=== PATIENT | male | born 1980 | race Caucasian/White ===

== ENCOUNTER 2019-02-09 01:36 | Emergency (ER) | payer BC, SELFPAY ==
[2019-02-09] VITALS (36 sets, daily range): BP systolic 123–196; BP diastolic 57–102; PULSE 69–101; RESP 12–25; TEMP 36.5–36.7; O2SAT 93–100
--- NOTE | 2019-02-09 01:57 | W.ED.GENAD ---
Discharge Plan Disposition Patient Disposition: HOME Condition: Improving Discharge Details Chief Complaint: Chest Pain Clinical Impression: Acute hypokalemia ED Provider: Hi Sanchez Home Meds and New Rx's Prescriptions: No Action No Known Home Meds RF: 0 Discharge Instructions Instructions: Hypokalemia (ED) Additional Instructions: As we discussed, I recommend you use a fitness mohamud or tracker to begin a program of improved diet and daily exercise. We will arrange for you to establish outpatient primary care. May liberalize potassium containing foods such as bananas, strawberries, tree nuts like cashews or almonds in the diet over the next 2 to 3 days. Return for any acute concern. Medical Decision Making 38-year-old male presents from home stating that on this past Friday he had numerous episodes of loose and watery stool, during 1 episode he was diaphoretic and lightheaded. Did not of syncope. He states he had brief tightness in his chest during that time that abated on its own. Tonight he again had recurrent epigastric tightness that lasted seconds and began after eating a hamburger. It was associated with tingling of the hands and he admits some anxiety. It improved by the time of arrival. Patient admits to some worries regarding his weight of 230 kg and wanted to make sure he did not have a heart attack after reviewing symptoms online. He arrives slightly anxious with a pulse 90-100, blood pressure 190/96. Differential diagnosis includes dehydration, electrolyte abnormality, acute coronary syndrome, esophagitis, anxiety. IV access established, patient placed on a cardiac nurse specialist, given a fluid bolus. Referred for laboratory testing and chest x-ray. Diagnostics: Blood cell count 7, hematocrit 41, platelets 187. Chemistries notable for potassium of 2.8. Troponin negative. chest x-ray unremarkable. Patient improved with fluids, potassium supplementation. We will arrange for him to establish outpatient primary care. Discussed with him utilizing a fitness mohamud and to begin a program of improved diet and exercise. Lab Data Lab results reviewed: Yes I reviewed the patient's lab results. Laboratory Results - last 24 hr 02/09/19 02/09/19 02:05 02:05 WBC 7.71 RBC 5.06 Hgb 13.7 Hct 41.6 MCV 82.2 MCH 27.1 MCHC 32.9 RDW 13.6 Plt Count 187 MPV 11.3 H Immature Gran % 0.3 Neutrophils % 64.4 Lymphocytes % 25.7 Monocytes % 7.9 Eosinophils % 1.4 Basophils % 0.3 Absolute Neutrophils 4.97 Absolute Lymphocytes 1.98 Absolute Monocytes 0.61 Absolute Eosinophils 0.11 Absolute Basophils 0.02 Sodium 143 Potassium 2.8 L* Chloride 104 Carbon Dioxide 30.6 Anion Gap 8.4 BUN 14 Creatinine 1.04 Estimated GFR/1.73 m2 >= 60.00 Glucose 96 Calcium 8.8 Magnesium 2.0 Total Bilirubin 0.4 AST 21 ALT 33 Alkaline Phosphatase 90 Troponin I < 0.02 Total Protein 7.4 Albumin 3.7 ECG Data Attestation: I personally reviewed and interpreted this ECG (s) as follows: Interpretation: Normal sinus rhythm with a rate of 98, the QRS is narrow, there is no ST segment elevation HPI General Mode of arrival: ambulatory. Date/Time Provider Initiated Documentation: 02/09/19 01:41. Limitations to Documentation: no limitations. Information obtained by: patient. History of Present Illness 38 year old M presents to the emergency department with the chief complaint of Brief chest pressure, improved, described as moderate, Quality is described as dull and constant, and is localized to the chest. Patient reports no radiation. Patient started experiencing this minute(s) and it has been now resolved. No relieving factors improve symptom(s), No exacerbating factors reported . Patient notes other (Nauseated and diaphoresis. Recent watery stool). Patient did receive the following treatments prior to arrival, none Related Data Home Medications Medication Instructions Recorded Confirmed Unknown [No Known Home Meds] 02/09/19 02/09/19 Allergies Allergy/AdvReac Type Severity Reaction Status Date / Time No Known Allergies Allergy Unverified 02/09/19 01:45 General Stated Complaint: Chest Pain SHAI: 2 Review of Systems Review of Systems 6 systems reviewed and otherwise negative [facility] Medical History Obesity (Chronic) Psoriasis (Chronic) Surgical History H/O oral surgery (Acute) Social History Smoking/Tobacco Use Status: Never Alcohol Intake: current Alcohol Intake frequency: holidays/special occasions only Drug use: Socially Substance use type: marijuana Do you feel safe at home: Yes Do you feel safe in your relationship?: Yes Exam Narrative Exam Narrative: GEN: awake, alert, oriented 3. Pleasant, well groomed, interactive. Obese HEAD: Normocephalic, atraumatic ENT: Mucous membranes moist, oropharynx unremarkable, External ear exam unremarkable EYES: PERRL, EOMI NECK: Full ROM, no CIRO, no menigismus CHEST/RESP: Nontender, clear to auscultation bilateral, no wheeze/rhonchi/rales CARDIOVASCULAR: RRR, no murmur, rub mitchel. 2+ Rad pulse bilateral ABDOMEN: Soft, nontender, no mass. +Bowel sounds. Small reducible umbilical hernia EXT: Full ROM, no edema, no rash Neuro: Grossly normal neurologic exam, conversant, interactive. Psych: Speech fluent, thoughts congruent, affect anxious Course Vital Signs Respiratory Rate 25 H 02/09/19 01:37 Pulse Oximetry 100 02/09/19 01:37 Temperature 36.7 C 02/09/19 01:42 Temperature Source Skin 02/09/19 01:42 Pulse 101 H 02/09/19 01:42 Pulse 96 H 02/09/19 01:40 Respiratory Rate 18 02/09/19 01:42 Respiratory Effort 02/09/19 01:47 Respiratory Depth Normal 02/09/19 01:47 Respiratory Pattern Normal 02/09/19 01:47 Blood Pressure 196/101 H 02/09/19 01:42 Blood Pressure Mean 123 02/09/19 01:38 Blood Pressure Position Sitting 02/09/19 01:42 Pulse Oximetry 99 02/09/19 01:42 Oxygen Delivery Method Room Air 02/09/19 01:42 Oxygen Flow Rate 0 02/09/19 01:42 Pain Level 3 02/09/19 01:42
--- NOTE | 2019-02-09 02:00 | ED.GENADUL_ITS ---
Discharge Plan Disposition Patient Disposition: HOME Condition: Improving Discharge Details Chief Complaint: Chest Pain Clinical Impression: Acute hypokalemia ED Provider: Hi Sanchez Home Meds and New Rx's Prescriptions: No Action No Known Home Meds RF: 0 Discharge Instructions Instructions: Hypokalemia (ED) Additional Instructions: As we discussed, I recommend you use a fitness mohamud or tracker to begin a program of improved diet and daily exercise. We will arrange for you to establish outpatient primary care. May liberalize potassium containing foods such as bananas, strawberries, tree nuts like cashews or almonds in the diet over the next 2 to 3 days. Return for any acute concern. Medical Decision Making 38-year-old male presents from home stating that on this past Friday he had numerous episodes of loose and watery stool, during 1 episode he was diaphoretic and lightheaded. Did not of syncope. He states he had brief tightness in his chest during that time that abated on its own. Tonight he again had recurrent epigastric tightness that lasted seconds and began after eating a hamburger. It was associated with tingling of the hands and he admits some anxiety. It improved by the time of arrival. Patient admits to some worries regarding his weight of 230 kg and wanted to make sure he did not have a heart attack after reviewing symptoms online. He arrives slightly anxious with a pulse 90-100, blood pressure 190/96. Differential diagnosis includes dehydration, electrolyte abnormality, acute coronary syndrome, esophagitis, anxiety. IV access established, patient placed on a security monitor, given a fluid bolus. Referred for laboratory testing and chest x-ray. Diagnostics: Blood cell count 7, hematocrit 41, platelets 187. Chemistries notable for potassium of 2.8. Troponin negative. chest x-ray unremarkable. Patient improved with fluids, potassium supplementation. We will arrange for him to establish outpatient primary care. Discussed with him utilizing a fitness mohamud and to begin a program of improved diet and exercise. Lab Data Lab results reviewed: Yes I reviewed the patient's lab results. Laboratory Results - last 24 hr 02/09/19 02/09/19 02:05 02:05 WBC 7.71 RBC 5.06 Hgb 13.7 Hct 41.6 MCV 82.2 MCH 27.1 MCHC 32.9 RDW 13.6 Plt Count 187 MPV 11.3 H Immature Gran % 0.3 Neutrophils % 64.4 Lymphocytes % 25.7 Monocytes % 7.9 Eosinophils % 1.4 Basophils % 0.3 Absolute Neutrophils 4.97 Absolute Lymphocytes 1.98 Absolute Monocytes 0.61 Absolute Eosinophils 0.11 Absolute Basophils 0.02 Sodium 143 Potassium 2.8 L* Chloride 104 Carbon Dioxide 30.6 Anion Gap 8.4 BUN 14 Creatinine 1.04 Estimated GFR/1.73 m2 >= 60.00 Glucose 96 Calcium 8.8 Magnesium 2.0 Total Bilirubin 0.4 AST 21 ALT 33 Alkaline Phosphatase 90 Troponin I < 0.02 Total Protein 7.4 Albumin 3.7 ECG Data Attestation: I personally reviewed and interpreted this ECG (s) as follows: Interpretation: Normal sinus rhythm with a rate of 98, the QRS is narrow, there is no ST segment elevation HPI General Mode of arrival: ambulatory . Date/Time Provider Initiated Documentation: 02/09/19 01:41 . Limitations to Documentation: no limitations . Information obtained by: patient . History of Present Illness 38 year old M presents to the emergency department with the chief complaint of Brief chest pressure, improved, described as moderate, Quality is described as dull and constant, and is localized to the chest. Patient reports no radiation. Patient started experiencing this minute(s) and it has been now resolved. No relieving factors improve symptom(s), No exacerbating factors reported . Patient notes other (Nauseated and diaphoresis. Recent watery stool). Patient did receive the following treatments prior to arrival, none Related Data Home Medications Medication Instructions Recorded Confirmed Unknown [No Known Home Meds] 02/09/19 02/09/19 Allergies Allergy/AdvReac Type Severity Reaction Status Date / Time No Known Allergies Allergy Unverified 02/09/19 01:45 General Stated Complaint: Chest Pain SHAI: 2 Review of Systems Review of Systems 6 systems reviewed and otherwise negative [facility] Medical History Obesity (Chronic) Psoriasis (Chronic) Surgical History H/O oral surgery (Acute) Social History Smoking/Tobacco Use Status: Never Alcohol Intake: current Alcohol Intake frequency: holidays/special occasions only Drug use: Socially Substance use type: marijuana Do you feel safe at home: Yes Do you feel safe in your relationship?: Yes Exam Narrative Exam Narrative: GEN: awake, alert, oriented 3. Pleasant, well groomed, interactive. Obese HEAD: Normocephalic, atraumatic ENT: Mucous membranes moist, oropharynx unremarkable, External ear exam unremarkable EYES: PERRL, EOMI NECK: Full ROM, no CIRO, no menigismus CHEST/RESP: Nontender, clear to auscultation bilateral, no wheeze/rhonchi/rales CARDIOVASCULAR: RRR, no murmur, rub mitchel. 2+ Rad pulse bilateral ABDOMEN: Soft, nontender, no mass. +Bowel sounds. Small reducible umbilical hernia EXT: Full ROM, no edema, no rash Neuro: Grossly normal neurologic exam, conversant, interactive. Psych: Speech fluent, thoughts congruent, affect anxious Course Vital Signs Respiratory Rate 25 H 02/09/19 01:37 Pulse Oximetry 100 02/09/19 01:37 Temperature 36.7 C 02/09/19 01:42 Temperature Source Skin 02/09/19 01:42 Pulse 101 H 02/09/19 01:42 Pulse 96 H 02/09/19 01:40 Respiratory Rate 18 02/09/19 01:42 Respiratory Effort 02/09/19 01:47 Respiratory Depth Normal 02/09/19 01:47 Respiratory Pattern Normal 02/09/19 01:47 Blood Pressure 196/101 H 02/09/19 01:42 Blood Pressure Mean 123 02/09/19 01:38 Blood Pressure Position Sitting 02/09/19 01:42 Pulse Oximetry 99 02/09/19 01:42 Oxygen Delivery Method Room Air 02/09/19 01:42 Oxygen Flow Rate 0 02/09/19 01:42 Pain Level 3 02/09/19 01:42
[2019-02-09] MEDS: Normal Saline 1,000 ML 1000 ML IV (02:15)
[2019-02-09] MEDS: Normal Saline Flush 10 ML SYR IVP (02:15)
[2019-02-09 02:16] LABS: Abs Immature Grans 0.02 k/cumm (0.0-0.09); Absolute Basophil Count 0.02 k/cumm (0.0-0.2); Absolute Eosinophil Count 0.11 k/cumm (0.0-0.7); Absolute Lymphocyte Count 1.98 k/cumm (1.2-3.4); Absolute Monocyte Count 0.61 k/cumm (0.11-0.7); Absolute Neutrophil Count 4.97 k/cumm (1.2-6.7); Basophils % 0.3; Eosinophils % 1.4; HCT 41.6 % (40.0-50.0); HGB 13.7 g/dL (13.5-17.5); Immature Grans % 0.3; Lymphocytes % 25.7; Mean Corp. HGB Concentration 32.9 g/dL (32.0-36.0); Mean Corpuscular Hemoglobin 27.1 pg (27.0-33.0); Mean Corpuscular Volume 82.2 fL (80-95); Mean Platelet Volume 11.3 fL (8.0-11.0); Monocytes % 7.9; Neutrophils % 64.4; Platelet Count 187 x1000/uL (130-400); RBC 5.06 m/cumm (4.50-6.00); RBC Distribution Width 13.6 % (11.8-14.1); White Blood Cell Count 7.71 k/cumm (4.4-10.8)
--- NOTE | 2019-02-09 02:30 | DI.RAD_ITS ---
SYMPTOM/DIAGNOSIS: CHEST PAIN PA AND LATERAL CHEST: There are no prior comparison exams. Again exam is limited by patient's body habitus. The cardiac and mediastinal contours have a normal appearance. The lungs appear clear. No infiltrate or effusion is seen. There is some respiratory motion on the lateral view. IMPRESSION: Somewhat limited exam. No acute abnormality.
[2019-02-09 02:31] LABS: ALT 33 U/L (12-78); AST 21 U/L (15-37); Albumin 3.7 g/dL (3.4-5.0); Alkaline Phosphatase 90 U/L (46-116); Anion Gap 8.4 mmol/L (3-11); BUN 14 mg/dL (7-18); Bilirubin, Total 0.4 mg/dL (0.2-1.0); CO2 30.6 mmol/L (21.0-32.0); CREATININE 1.04 mg/dL (0.70-1.30); Calcium 8.8 mg/dL (8.5-10.1); Chloride 104 mmol/L (98-107); Glucose 96 mg/dL (70-100); Sodium 143 mmol/L (136-145); Total Protein 7.4 g/dL (6.4-8.2)
[2019-02-09 02:39] LABS: Potassium 2.8 mmol/L (3.5-5.1); Troponin I < 0.02 ng/mL (0.00-0.06)
[2019-02-09] MEDS: Potassium Chloride Liquid 20 MEQ PKT PO (02:56)
[2019-02-09] MEDS: POTASSIUM CHLORIDE 20 MEQ/100 ML BAG 50 MEQ IVPB (02:56)
--- NOTE | 2019-02-09 03:21 | DI.VRAD_ITS ---
EXAM: XR Chest, 2 Views EXAM DATE/TIME: 02/09/2019 1:57 AM CLINICAL HISTORY: 38 years old, male; Chest pain; Type not specified TECHNIQUE: Imaging protocol: XR of the chest, 2 views. COMPARISON: No relevant prior studies available. FINDINGS: Lungs: Unremarkable. No consolidation. Pleural space: Unremarkable. No pleural effusion. No pneumothorax. Heart/Mediastinum: Unremarkable. No cardiomegaly. Bones/joints: Unremarkable. IMPRESSION: No acute findings. Dictated and Authenticated by: Shaka Cuba MD. Ordering:MARISSA Do MD
== END 2019-02-09 05:38 | disposition home or self-care (01) ==
PROVIDERS: Emergency Provider Emergency Medicine
DX: E87.6 Hypokalemia (principal); R20.2 Paresthesia of skin; F41.9 Anxiety disorder, unspecified
CPT/HCPCS: 36415; 80053; 96361; 96365; 96366; 99284; 71046; 83735; 84484; 85025; J3480

== ENCOUNTER 2020-10-26 16:47 | Outpatient (REF) | payer BC, SELFPAY ==
[2020-10-26 21:10] LABS: HCT 48.6 % (40.0-50.0); MCH 27.1 pg (27.0-33.0); MCHC 32.9 % (32.0-36.0); MCV 82.4 fL (80-95); MPV 12.8 fL (8.0-11.0); Platelet Count 183 10^3/uL (130-400); RDW 12.7 % (11.8-14.1); RDW-SD 38.1 fL; WBC 6.44 10^3/uL (4.4-10.8)
[2020-10-26 21:37] LABS: ALT 31 U/L (16-63); AST 18 U/L (15-37); Albumin 3.8 g/dL (3.4-5.0); Alkaline Phosphatase 89 U/L (46-116); BUN 12 mg/dL (7-18); Bilirubin, Total 0.6 mg/dL (0.2-1.0); CREATININE 0.9 mg/dL (0.70-1.30); Calculated LDL 115 mg/dL (<100); Chloride 107 mmol/L (98-107); Cholesterol 168 mg/dL (<200); Glucose 98 mg/dL (74-106); HDL Cholesterol 34 mg/dL (40-60); Potassium 3.8 mmol/L (3.5-5.1); Sodium 144 mmol/L (136-145); Total Protein 7.5 g/dL (6.4-8.2); Triglyceride 96 mg/dL (<150)
[2020-10-30 10:21] LABS: Hepatitis C Ab w Rflx HCV PCR Negative (Negative)
[2020-10-30 10:29] LABS: HIV-1/2 Ag & Ab Screen Negative (Negative)
== END 2020-10-26 16:48 | disposition home or self-care (01) ==
LOC: NCHCN 16:47
PROVIDERS: Visit Provider Nurse Practitioner Family
DX: I10 Essential (primary) hypertension (principal); E87.6 Hypokalemia; Z11.59 Encounter for screening for other viral diseases; Z11.4 Encounter for screening for human immunodeficiency virus [HIV]
CPT/HCPCS: 80053; 80061; 85027; 86803; 87389

== ENCOUNTER 2021-05-26 11:37 | Emergency (ER) | payer BC, SELFPAY ==
[2021-05-26 11:42] VITALS: BP 160/105; PULSE 92; RESP 16; TEMP 36
--- NOTE | 2021-05-26 11:45 | DI.CT_ITS ---
Exam(s) CT ABDOMEN PELVIS W EXAM: CT ABDOMEN PELVIS W CLINICAL HISTORY: lower abdominal pain TECHNIQUE: Imaging Protocol: Axial computed tomography images with coronal and sagittal reformatted images were created and reviewed CONTRAST MATERIAL: Intravenous: Omnipaque 350 Contrast volume:100 mL Oral: No COMPARISON: No exams were available for comparison FINDINGS: The examination is limited due to patient motion artifact. ABDOMEN: Lung Bases: Normal where visualized. Small hiatal hernia. Liver: Fatty infiltration. No measurable mass. The liver is 22 cm long. Portal, Superior Mesenteric, and Splenic Veins: Unremarkable. Gallbladder and Biliary Tract: Cholelithiasis. No biliary ductal dilatation. Pancreas: Normal density, no abnormal calcifications or inflammatory process. Spleen: The spleen measures 15 cm long. Adrenals: No masses seen. Kidneys: Normal size, contour and axis. There is a 1-2 mm stone at the right UVJ. (Series 7, image 8 05). There is mild hydronephrosis. No masses seen. Abdominal Aorta: Abdominal portion non-dilated. Bowel: No obstruction or bowel wall thickening. No evidence of appendicitis. Peritoneal Cavity: No ascites, collection or mesenteric inflammatory response. No free air. Lymph Nodes: Within normal limits. Bones: Within normal limits for the patient's age. Soft Tissues: There is a large fat containing umbilical hernia. PELVIS: Bladder: The urinary bladder is incompletely distended. No gross abnormality is identified. Reproductive Organs: Unremarkable as visualized. Lymph Nodes: Within normal limits. Bones: Within normal limits for the patient's age. IMPRESSION: 1. 1-2 mm right UVJ calculus with mild hydronephrosis. 2. Large fat containing umbilical hernia. RADIATION DOSE DELIVERED: 1,816.86mGy.cm Total DLP DATA REPOSITORY: All CT scans at this facility are submitted to the National Radiology Data Registry (NRDR) Dose Index Registry (DIR) with the [employer] ([employer]). RADIATION OPTIMIZATION: All CT scans at this facility use at least one of these dose optimization te chniques: automated exposure control; mA and/or kV adjustment per patient size (includes targeted exa ms where dose is matched to clinical indication); or iterative reconstruction.
--- NOTE | 2021-05-26 11:59 | W.ED.GENAD ---
Discharge Plan Disposition Patient Disposition: HOME Condition: Stable Discharge Details Clinical Impression: Pain in testicle, Abdominal pain, Kidney stone, Hypokalemia Primary Care Provider: Ben Mathias ED Provider: Shaka Villalobos Home Meds and New Rx's Prescriptions: New ondansetron 4 mg tablet,disintegrating 4 mg PO Q8H PRN (Reason: nausea and vomiting) Qty: 30 RF: 0 tamsulosin [Flomax] 0.4 mg capsule 0.4 mg PO DAILY Qty: 13 RF: 0 oxycodone 5 mg tablet 5 mg PO Q6H PRN (Reason: pain) Qty: 12 RF: 0 Continued losartan-hydrochlorothiazide 100-12.5 mg tablet 1 tab PO DAILY RF: 0 Discharge Instructions Instructions: Kidney Stones (ED), Hypokalemia (ED) Additional Instructions: you were found to have a kidney stone on the right and you have a abdominal wall hernia that has no bowels in it I placed you on our follow up list to see a urologist and for your hernia referred you to general surgery, you should receive a call for both of these appointments if you feel more ill, have fevers or persistent vomit return to the emergency department you can take 1000mg tylenol and 600mg ibuprofen every 6 hours for pain as needed do not drink alcohol or drive if you take the oxycodone Medical Decision Making 41 yo male with hx of htn comes in with lower abdominal cramping and pain since this morning. He has been having chronic issues with bowel movements and constipation and intermittent pain with having bowel movements. He is due to see a surgeon for colonoscopy. He denies any vomit recently or fevers. He is in no distress and appears well. He has tenderness in the llq, and a tender mid abdomen and what feels like a hernia, no testicle swelling or pain. His rectal exam is benign, no blood, hemorrhoids, fissures or other abnormalities on exam. I suspect his symptoms are due to functional constipation but given the llq tenderness and hernia on exam will obtain labs and ct to evaluate for possible diverticulitis shortly after initial assessment patient started to become tremulous, have nausea and diaphoretic and appeared to be having a panic attack, zofran ordered and also ativan to help with the anxiety and help to get adequate ct imaging. pt now complaining of right testicle pain, no swelling on exam but is tender to posterior testicle, intact cremasteric reflex so unlikely torsion but will obtain u/s to further evaluate. labs remarkable for K of 2.6, repletion ordered. U/s unremarkable, CT by vrad showed fat containing hernia which I discussed with Dr. Alonso who advised no acute intervention if no bowel present in the hernia. Vrad did not comment on his right kidney stone but Dr. Vale called and advised he does have one. Patient informed of this and is feeling better, will recheck metabolic panel after potassium finishes pt's K increased to 3.0 and he is tolerating PO and feels significantly better to the point he feels he can go home. He is stable for outpatient management and will place on f/u list to see urology, return precautions given Differential Diagnosis Differential Diagnosis: constipation, diverticulitis, functional constipation Imaging Data Radiologic Study: Attestation: I personally reviewed and interpreted this imaging study as follows: Imaging: CT Scan Radiologist's impression: MPRESSION: 1. 1-2 mm right UVJ calculus with mild hydronephrosis. 2. Large fat containing umbilical hernia. Radiologic Study #2: Attestation: I personally reviewed and interpreted this imaging study as follows: Imaging: Ultrasound Radiologist's impression: IMPRESSION: Testes appear normal with normal flow. Trace right-sided fluid is noted. Lab Data Lab results reviewed: Yes I reviewed the patient's lab results. HPI General Mode of arrival: ambulatory. Date/Time Provider Initiated Documentation: 05/26/21 11:40. Limitations to Documentation: no limitations. Information obtained by: patient. History of Present Illness 41 year old M presents to the emergency department with the chief complaint of abdominal pain, with intensity rated at 4. Quality is described as aching, and is localized to the abdomen. Patient reports no radiation. Patient started experiencing this day(s) (1) and it has been constant. No relieving factors improve symptom(s), No exacerbating factors reported . Patient did receive the following treatments prior to arrival, none Related Data Home Medications Medication Instructions Recorded Confirmed losartan 100 1 tab PO DAILY 05/25/21 05/26/21 mg-hydrochlorothiazide 12.5 mg tablet ondansetron 4 mg PO Q8H PRN #30 tab 05/26/21 oxycodone 5 mg PO Q6H PRN #12 tab 05/26/21 tamsulosin [Flomax] 0.4 mg PO DAILY #13 cap 05/26/21 Previous Rx's Medication Instructions Recorded ondansetron 4 mg PO Q8H PRN #30 tab 05/26/21 oxycodone 5 mg PO Q6H PRN #12 tab 05/26/21 tamsulosin [Flomax] 0.4 mg PO DAILY #13 cap 05/26/21 Allergies Allergy/AdvReac Type Severity Reaction Status Date / Time No Known Allergies Allergy Unverified 05/26/21 11:47 General Stated Complaint: Abd Prob SHAI: 3 Review of Systems All systems reviewed & are unremarkable except as noted in HPI and below Constitutional Constitutional: Denies chills, Denies fever(s) and Denies weakness Cardiovascular Cardiovascular: Denies chest pain and Denies dyspnea Respiratory Respiratory: Denies cough and Denies dyspnea Gastrointestinal Gastrointestinal: Denies nausea and Denies vomiting Neurologic Neurologic: Denies weakness [facility] Medical History (Updated 05/26/21 @ 14:47 by Shaka Villalobos MD) Hypertension Obesity Psoriasis Skin tag Tenesmus Umbilical hernia Surgical History H/O oral surgery Social History Smoking/Tobacco Use Status: Never Smoking risk assessment performed?: Yes Alcohol Intake: current Alcohol Intake frequency: holidays/special occasions only Drug use: Socially Substance use type: marijuana Do you feel safe at home: Yes Do you feel safe in your relationship?: Yes Exam Const General: no acute distress Orientation: alert HENAK Head: normal to inspection Ears: external ears normal General nose exam: external nose normal Mouth: moist mucous membranes Eyes General: appearance normal, both eyes and all related structures Neck Neck: normal visual inspection Resp Effort & Inspection: normal respiratory effort and able to speak in complete sentences Cardio Rate: regular rate GI Palpation: soft and tender Skin General skin exam: no rashes or lesions noted Neuro General: patient alert and patient oriented x3 Extrem General: normal to inspection Psych Mental Status: mental status grossly normal Course Vital Signs Vital signs: Vital Signs Temperature 36 C L 05/26/21 11:42 Pulse 92 H 05/26/21 11:42 Respiratory Rate 16 05/26/21 11:42 Blood Pressure 160/105 H 05/26/21 11:42 Temperature 36 C L 05/26/21 11:42 Temperature Source Skin 05/26/21 11:42 Pulse 92 H 05/26/21 11:42 Respiratory Rate 16 05/26/21 11:42 Respiratory Effort Non-Labored 05/26/21 11:42 Blood Pressure 160/105 H 05/26/21 11:42 Blood Pressure Position Sitting 05/26/21 11:42 Oxygen Delivery Method Room Air 05/26/21 11:42 Oxygen Flow Rate 0 05/26/21 11:42 Pain Level 4 05/26/21 11:42
[2021-05-26] MEDS: Normal Saline 1,000 ML 1000 ML IV (12:35)
[2021-05-26] MEDS: Normal Saline Flush 10 ML SYR IVP ×4 (12:35→16:02)
[2021-05-26] MEDS: Ketorolac 15 MG/ML VIAL IVP ×2 (12:35→13:35)
[2021-05-26] MEDS: Ondansetron 4 MG/2 ML VIAL IVP ×2 (12:45→13:48)
[2021-05-26] MEDS: LORazepam 2 MG/ML VIAL 1 MG IVP (12:50)
[2021-05-26 12:58] LABS: Abs Immature Grans 0.01 10^3/uL (0.0-0.06); Absolute Basophil Count 0.04 10^3/uL (0.0-0.2); Absolute Eosinophil Count 0.04 10^3/uL (0.0-0.7); Absolute Lymphocyte Count 1.52 10^3/uL (1.2-3.4); Absolute Monocyte Count 0.65 10^3/uL (0.1-0.8); Absolute Neutrophil Count 3.75 10^3/uL (1.2-6.7); Basophils % 0.7; Eosinophils % 0.7; HCT 46.1 % (40.0-50.0); HGB 15.3 g/dL (13.5-17.5); Immature Grans % 0.2; Lymphocytes % 25.3; MCH 26.9 pg (27.0-33.0); MCHC 33.2 % (32.0-36.0); MCV 81.2 fL (80-95); MPV 12.7 fL (8.0-11.0); Monocytes % 10.8; Neutrophils % 62.3; Nucleated RBC 0 %; Platelet Count 198 10^3/uL (130-400); RBC 5.68 10^6/uL (4.36-5.78); RDW 12.3 % (11.8-14.1); RDW-SD 36.2 fL; WBC 6.01 10^3/uL (4.4-10.8)
--- NOTE | 2021-05-26 13:00 | DI.US_ITS ---
Exam(s) US SCROTUM EXAM: US SCROTUM CLINICAL HISTORY: right testicle pain. TECHNIQUE: Scrotal ultrasound performed using grayscale, color-flow and spectral Doppler analysis. COMPARISON: No exams were available for comparison FINDINGS: Right testicle: 5.2 x 2.7 x 3.1 cm Echogenicity: Normal. Contour: Smooth. Mass: None seen. Microlithiasis: None. Hydrocele: None. Variocele: None. Hernia: No peristalsing bowel loop identified. Epididymis: Normal. The epididymal appendix is visualized. Left testicle: 4.5 x 2.7 x 3.7 cm Echogenicity: Normal. Contour: Smooth. Mass: None seen. Microlithiasis: None. Hydrocele: None. Variocele: None. Hernia: No peristalsing bowel loop identified. Epididymis: There is a 2 mm epididymal head cyst. DOPPLER: Color: Symmetric and uniform, no hyperemia. Duplex: Bilateral testicular arterial waveforms visualized. IMPRESSION: No evidence of testicular mass or torsion. DATA REPOSITORY:
--- NOTE | 2021-05-26 13:02 | NUR.NOTE ---
1230 pt up to commode for BM,- no BM, became sweaty and paniky. back to bed. soon after he became nauseous-got up quickly to vomit in commode.Nursing Note:
[2021-05-26 13:16] LABS: ALT 44 U/L (16-63); AST 28 U/L (15-37); Albumin 4.1 g/dL (3.4-5.0); Alkaline Phosphatase 60 U/L (46-116); Anion Gap 10.1 mmol/L (3-11); BUN 12 mg/dL (7-18); Bilirubin, Direct 0.2 mg/dL (0.0-0.2); Bilirubin, Total 1.1 mg/dL (0.2-1.0); CO2 27.9 mmol/L (21.0-32.0); CREATININE 1.2 mg/dL (0.70-1.30); Calcium 9.3 mg/dL (8.5-10.1); Chloride 103 mmol/L (98-107); Glucose 117 mg/dL (74-106); Lipase 76 U/L (73-393); Sodium 141 mmol/L (136-145); Total Protein 7.8 g/dL (6.4-8.2)
[2021-05-26 13:19] LABS: Potassium 2.6 mmol/L (3.5-5.1)
[2021-05-26] MEDS: Omnipaque 350 MG/ML 100 ML BTL IJ (13:21)
[2021-05-26] MEDS: Normal Saline - Diluent 50 ML VIAL IV (13:24)
[2021-05-26] MEDS: Potassium Chloride 20 MEQ TABCR 40 MEQ PO (13:38)
--- NOTE | 2021-05-26 14:00 | DI.VRAD_ITS ---
PROCEDURE INFORMATION: Exam: CT Abdomen And Pelvis With Contrast Exam date and time: 05/26/2021 11:59 AM Age: 41 years old Clinical indication: Abdominal pain; Other: Lower TECHNIQUE: Imaging protocol: Computed tomography of the abdomen and pelvis with contrast. Contrast material: OMNIPAQUE 350; Contrast volume: 100 ml; Contrast route: INTRAVENOUS (IV); COMPARISON: CR XR CHEST 2V PA LATERAL 09/02/2019 02:22 FINDINGS: Lungs: Visualized lung bases are clear. Liver: Normal. No mass or intrahepatic biliary ductal dilatation. Gallbladder and bile ducts: Normal. No calcified stones. No ductal dilation. Pancreas: Normal. No mass or ductal dilation. Spleen: Normal. No splenomegaly. Adrenal glands: Normal. No mass. Kidneys and ureters: Normal. No hydronephrosis, calculus, cyst or mass. Stomach and bowel: Unremarkable. No significant dilatation or obstruction. No mucosal thickening or visible mass. Appendix: No evidence of appendicitis. Intraperitoneal space: Unremarkable. No free air. No significant fluid collection. Vasculature: Unremarkable. No abdominal aortic aneurysm or significant atherosclerosis. Lymph nodes: No enlarged retroperitoneal or mesenteric lymph nodes. Urinary bladder: No mass or wall thickening. Reproductive: Unremarkable as visualized. Bones/joints: Unremarkable. No acute fracture. No lytic lesion. Soft tissues: There is an umbilical hernia containing omental fat. The defect in the abdominal wall measures about 3 cm and the size of the hernia is about 9 cm. There is no bowel involvement. There is some subtle increased attenuation of the mesenteric fat within and just deep to the hernia which could reflect inflammation or potentially some vascular compromise. IMPRESSION: Fat containing umbilical hernia with increased attenuation possibly reflecting vascular compromise or inflammation. Dictated and Authenticated by: Hi Vallejo MD. Ordering:JOSÉ Matt MD
[2021-05-26] MEDS: POTASSIUM CHLORIDE 10 MEQ/100 ML BAG 100 MEQ IVPB (14:14)
--- NOTE | 2021-05-26 14:16 | DI.VRAD_ITS ---
PROCEDURE INFORMATION: Exam: US Scrotum Exam date and time: 05/26/2021 1:12 PM Age: 41 years old Clinical indication: Other: RT testicular pain TECHNIQUE: Imaging protocol: Real-time ultrasound of the scrotum and contents with color Doppler and image documentation. COMPARISON: CT ABDOMEN PELVIS W 10/04/2020 13:23 FINDINGS: Right testicle: Normal. No mass. No torsion. Normal vascular flow. Length is 5.2 cm. Trace fluid is seen on the right. Left testicle: Normal. No mass. No torsion. Normal vascular flow. Length is 4.5 cm. Epididymides: Normal. Scrotum: Normal. IMPRESSION: Testes appear normal with normal flow. Trace right-sided fluid is noted. Dictated and Authenticated by: Hi Vallejo MD. Ordering:JOSÉ Matt MD
[2021-05-26 14:27] VITALS: BP 147/89; PULSE 75; RESP 18; TEMP 35.9; O2SAT 98
[2021-05-26] MEDS: HYDROmorphone 2 MG/ML VIAL 1 MG IVP (14:34)
[2021-05-26 14:46] LABS: Lactate 1.7 mmol/L (0.6-1.4)
[2021-05-26 15:43] LABS: Anion Gap 5.2 mmol/L (3-11); BUN 12 mg/dL (7-18); CO2 30.8 mmol/L (21.0-32.0); CREATININE 1.3 mg/dL (0.70-1.30); Calcium 8.9 mg/dL (8.5-10.1); Chloride 103 mmol/L (98-107); Glucose 122 mg/dL (74-106); Sodium 139 mmol/L (136-145)
[2021-05-26 15:48] VITALS: BP 110/51; PULSE 75; RESP 16; TEMP 36; O2SAT 96
[2021-05-26 15:48] LABS: Bilirubin Negative (Negative); Blood Moderate (Negative); Clarity Clear (Clear); Glucose Negative (Negative); Ketones 40 mg/dL (Negative); Leukocyte Esterase Negative (Negative); Nitrite Negative (Negative); Urobilinogen 0.2 EU/dL (Up TO 0.2); pH 5.5 (5-8)
[2021-05-26 15:58] LABS: Bacteria Negative HPF (Negative); C & S Indicated? No; Crystals Negative HPF (Negative); Epithelial Cells Negative HPF (Negative); Mucus Negative (Negative); RBC 20-50 HPF (0-2); WBC Negative HPF (0-5)
[2021-05-26] MEDS: Prochlorperazine 10 MG/2 ML VIAL IVP (16:02)
--- NOTE | 2021-05-26 16:32 | NUR.NOTE ---
Nursing Note: Referral faxed to [facility] for follow up of kidney stone, follow up from ED. Referral faxed to [facility] for abdominal hernia within 1 to 2 weeks. Becky Sumner
[2021-05-26 16:39] VITALS: BP 110/51; PULSE 75; RESP 16; TEMP 36; O2SAT 96
== END 2021-05-26 16:38 | disposition home or self-care (01) ==
PROVIDERS: Emergency Provider Emergency Medicine; PCP Physician Assistant
DX: N13.2 Hydronephrosis with renal and ureteral calculous obstruction (principal); E87.6 Hypokalemia; N50.811 Right testicular pain; R10.31 Right lower quadrant pain; K42.9 Umbilical hernia without obstruction or gangrene
CPT/HCPCS: 36415; 80048; 80053; 83690; 87635; 96361; 96365; 96375; 96376; 99285; 74177; 76870; 81003; 81015; 82248; 83605; 85025; J0780; J1885; J2060; J2405; J3480; J3490

== ENCOUNTER 2021-05-29 04:00 | Outpatient (CLI) | payer BC, SELFPAY ==
[2021-05-29 10:19] LABS: Abs Immature Grans 0.02 10^3/uL (0.0-0.06); Absolute Basophil Count 0.07 10^3/uL (0.0-0.2); Absolute Eosinophil Count 0.08 10^3/uL (0.0-0.7); Absolute Lymphocyte Count 1.89 10^3/uL (1.2-3.4); Absolute Monocyte Count 0.52 10^3/uL (0.1-0.8); Absolute Neutrophil Count 2.12 10^3/uL (1.2-6.7); Basophils % 1.5; Eosinophils % 1.7; HCT 45.5 % (40.0-50.0); Immature Grans % 0.4; Lymphocytes % 40.2; MCH 27.4 pg (27.0-33.0); MPV 12.3 fL (8.0-11.0); Monocytes % 11.1; Neutrophils % 45.1; Nucleated RBC 0 %; Platelet Count 175 10^3/uL (130-400); RBC 5.48 10^6/uL (4.36-5.78); RDW 12.1 % (11.8-14.1); RDW-SD 36.9 fL
[2021-05-29 12:01] LABS: C-Reactive Protein 0.46 mg/dL (0.0-0.3)
== END 2021-05-29 04:01 | disposition home or self-care (01) ==
LOC: LBO 04:00
PROVIDERS: PCP Physician Assistant; Visit Provider Surgery
DX: K62.5 Hemorrhage of anus and rectum; Z83.79 Family history of other diseases of the digestive system
CPT/HCPCS: 36415; 85025; 86140

== ENCOUNTER 2021-06-08 02:19 | Outpatient (CLI) | payer BC, SELFPAY ==
[2021-06-08 10:24] LABS: Source Nasal/Nares
[2021-06-08 18:55] LABS: COVID-19 PCR Negative (Negative)
== END 2021-06-08 02:20 | disposition home or self-care (01) ==
LOC: LBO 02:19
PROVIDERS: PCP Physician Assistant; Visit Provider Surgery
DX: Z20.822 Contact with and (suspected) exposure to COVID-19 (principal); Z01.818 Encounter for other preprocedural examination
CPT/HCPCS: 87635

== ENCOUNTER 2021-06-11 08:46 | Day surgery (SDC) | payer BC, SELFPAY ==
[2021-06-11] VITALS (8 sets, daily range): BP systolic 102–163; BP diastolic 58–99; PULSE 68–94; RESP 16–24; TEMP 36.2–36.4; O2SAT 95–98; BMI 50.5
--- NOTE | 2021-06-11 06:55 | W.COLOREPORT ---
Colonoscopy Report Date of procedure: 06/11/21 Pre-op diagnosis general: Rectal bleeding, tenesmus, diarrhea Post-op diagnosis procedure note: other (external hemorrhoids, polyps, anal fissure) Procedure: 1. Colonoscopy with polypectomy Surgeon: Miri Moreno Anesthesia Type: General:No Airway (Catherine De Anda CRNA/ Jose David Ratliff CRNA) Estimated blood loss (mL): 3 Pathology: other (descending polyp, sigmoid polyp) Complications: None Disposition: same day Indications: Mr. Beckford is a pleasant 41-year-old gentleman who was seen about a week ago for rectal pain, rectal bleeding and changes in bowel habits. He also has a family history of Crohn's disease. He was prescribed nifedipine lidocaine compound cream which has helped with his rectal pain and bleeding. He does have mostly diarrhea and sometimes he can be constipated. He has not had any unintentional weight loss. He does not describe bloody diarrhea. Discussed the colonoscopy as well as possible hemorrhoid banding and anoscopy at the time of the colonoscopy. This would be most comfortable for him. Risks, benefits and complications have been reviewed. Complications include but are not limited to bleeding, pain, perforation, missed small lesion/polyp, sore throat, aspiration and adverse reaction to the medications. Questions were entertained and answered to their satisfaction and they wished to proceed. No guarantees were given or implied. Proceed with colonoscopy, possible hemorrhoid banding and anoscopy. Prep: Miralax/Dulcolax Procedure Start Time: 10:22 Procedure End Time: 11:11 Retraction Time: 13 minutes Findings: One 0.8 cm pedunculated polyp in the descending polyp, on sessile polyp in the sigmoid colon Grade 2 external hemorrhoids Anal fissure at 6 o'clock Procedure Description: After informed consent was obtained the patient was taken to the procedure room and placed in a left decubitous position. Monitors were applied and a time out was done. The patients name, date of , procedure, allergies to medications and metal in their body was reviewed. The patient was then sedated. Once sedated and comfortable a rectal exam was done. External exam revealed grade 2 external hemorrhoids and an anal fissure at 6 o'clock. Internal exam revealed a normal sphincter tone and no palpable masses. The prostate felt smooth. The scope was then introduced and retro-flexed. NO internal hemorrhoids, polyps or masses were identified on retro-flexion. The scope was then advanced to the cecum without difficulty. The ileocecal vlave and appendiceal orifice were identified. The prep was good. The scope was then slowly retracted over 13 minutes back into the rectum. Polyps were removed with a hot snare in the descending colon and with cold forceps in the sigmoid colon. There was no diverticulosis noted. The scope was removed and the patient was woken up and taken back to Same day surgery in stable condition. The patient tolerated the procedure well and there were no immediate complications. Follow up: The patient should follow up in 3-5 years unless they develop changes in bowel habits or other new gastrointestinal complaints.
--- NOTE | 2021-06-11 06:55 | W.PM.DSUDISC ---
Discharge Plan Disposition Patient Disposition: HOME Condition: Good Discharge Details Reason For Visit: Colonoscopy Attending Provider: Miri Moreno Primary Care Provider: Ben Mathias Home Meds and New Rx's Prescriptions: Continued (DME) nifedipine/hydrocortizone cream See Rx Instructions .Route .MEDSUPPLY Qty: 1 RF: 0 hydrocortisone acetate 30 mg suppository 30 mg OK BID 6 Days Qty: 12 RF: 1 njquwslat-hkfctgyrrtkxzw-anha 3-2.5 % (7 gram) kit 1 applic OK BID 6 Days Qty: 12 RF: 1 losartan-hydrochlorothiazide 100-12.5 mg tablet 1 tab PO DAILY RF: 0 ondansetron 4 mg tablet,disintegrating 4 mg PO Q8H PRN (Reason: nausea and vomiting) Qty: 30 RF: 0 tamsulosin [Flomax] 0.4 mg capsule 0.4 mg PO DAILY Qty: 13 RF: 0 oxycodone 5 mg tablet 5 mg PO Q6H PRN (Reason: pain) Qty: 12 RF: 0 acetaminophen 500 mg Capsule 2,000 mg PO Q6H PRNRF: 0 ibuprofen 600 mg Tablet 600 mg PO TID PRNRF: 0 Discontinued polyethylene glycol 3350 17 gram/dose powder 238 g PO ONCE Qty: 238 RF: 0 bisacodyl [Dulcolax (bisacodyl)] 5 mg tablet,delayed release (DR/EC) 5 mg PO ONCE Qty: 4 RF: 0 Discharge Instructions Instructions: Colorectal Polyps (DC), Hemorrhoids (DC), Chronic Diarrhea (DC) Additional Instructions: Findings: 2 polyps external hemorrhoids fissure that is starting to heal Follow up: 3-5 years Please call if you develop: fevers >101.5 Nausea or Vomiting Abdominal pain that is not transient Rectal bleeding that is more then a tbsp A hard abdomen and inability to pass gas DAY SURGERY UNIT POST ENDOSCOPY INSTRUCTIONS Instructions for everyone who is given Anesthesia: For your safety, please do the following for the next 24 Hours: a. Do not drive or operate dangerous equipment b. Do not drink alcohol beverages or use any recreational drugs for the first 24 hours or while taking pain medications. The medications in your body may have a reaction that can be dangerous. c. Do not make any important decisions or sign any important papers 1. Generally there are no restrictions on your activity after a day or so has gone by, but you may feel a bit fatigued for a few days. 2. After you arrive home you may have a light meal and return to a normal diet as you can tolerate it without feeling sick to your stomach. 3. After surgery, you may feel pain or discomfort. This should be only transient, but if it persists please contact your doctor. 4. If there are any questions regarding the findings of your procedure, please feel free to contact your doctor. 6. If you are unable to contact your doctor with a problem, contact the hospital at [phone]. 7. Continue all your regular medications unless directed otherwise. I understand the above instructions and have no questions. Signature of Patient or Responsible Adult Escort Date/Time Name of Responsible Adult Escort Signature of Nurse Date/Time Activity:: Activity as Tolerated Diet:: high fiber diet Discharge Orders Discharge Orders: Discharge Order (Routine); Ordered 06/11/21 Ordered By: Miri Moreno
--- NOTE | 2021-06-11 09:39 | ANES.PREOP_ITS ---
General Info Date of Service Date Performed: 06/11/21 Height: 6 ft Weight: 168.9 kg Body Mass Index (BMI): 50.5 Surgical Procedure: Operation Date: 06/11/21 11:35 Proposed Procedures Side Surgeon p Colonoscopy Miri Moreno MD Meds Allergies and Home Medications Allergies Allergy/AdvReac Type Severity Reaction Status Date / Time No Known Allergies Allergy Verified 06/11/21 09:25 Home Medication Medication Instructions Recorded losartan 100 1 tab PO DAILY 05/25/21 mg-hydrochlorothiazide 12.5 mg tablet ondansetron 4 mg PO Q8H PRN #30 tab 05/26/21 oxycodone 5 mg PO Q6H PRN #12 tab 05/26/21 tamsulosin [Flomax] 0.4 mg PO DAILY #13 cap 05/26/21 nifedipine/hydrocortizone cream #1 ea 05/31/21 bisacodyl 5 mg tablet,delayed 5 mg PO ONCE #4 tab 06/01/21 release polyethylene glycol 3350 17 238 g PO ONCE #238 g 06/01/21 gram/dose oral powder hydrocortisone acetate 30 mg 30 mg NE BID 6 Days #12 ea 06/04/21 rectal suppository dmqbvsugw-kpfmivrmkvhqso-qldq vera 1 applic NE BID 6 Days #12 ea 06/04/21 3 %-2.5 % (7 gram) rectal kit acetaminophen [Tylenol Extra 2,000 mg PO Q6H PRN 06/11/21 Strength] ibuprofen 600 mg PO TID PRN 06/11/21 Current Visit Medications: Current Medications Generic Name Dose Route Start Last Admin Trade Name Freq PRN Reason Stop Dose Admin Hyoscyamine Sulfate 0.125 mg 06/11/21 06:56 Hyoscyamine 0.125 Mg Sl/Oral/Chew SL DIRECTED PRN Ringer's Solution 1,000 mls @ 80 mls/hr 06/11/21 06:00 IV 07/08/21 23:59 [facility] IV Miscellaneous Supplies 1 each 06/11/21 06:00 Iv Access IV 07/08/21 23:59 DIRECTED [facility] Ondansetron HCl 4 mg 06/11/21 06:56 Ondansetron 4 Mg/2 Ml Vial IVP Q4H PRN PRN Nausea / Vomiting Sodium Chloride 0 ml 06/11/21 06:00 Normal Saline Flush 10 Ml Syr IV 07/08/21 23:59 PRN PRN Sodium Chloride 0 ml 06/11/21 06:00 Normal Saline 10 Ml Vial IJ 07/08/21 23:59 DIRECTED PRN Sterile Water 0 ml 06/11/21 06:00 Water,Injection,Sterile 10 Ml Vial IJ 07/08/21 23:59 DIRECTED PRN PFSH Active Problems Active Problems: Problem Status Onset Code Tenesmus R19.8 Abdominal pain R10.9 Hypokalemia E87.6 Family history of Crohn's disease Z83.79 Rectal bleeding K62.5 Medical History Medical History Hypertension Kidney stone Obesity Pain in testicle Psoriasis Skin tag Tenesmus Umbilical hernia Surgical History Surgical History H/O oral surgery Tobacco Smoking/Tobacco Use Status: Never Alcohol Alcohol Intake: current Alcohol intake frequency: holidays/special occasions only Alcohol type: beer, wine and hard liquor Substance Use Substance use: Socially Substance use type: marijuana Details: marijuana: t-7, souravl, pt. states he probably has a high tolerance Vital Signs and Lab Results Vital Signs Most Recent Vital Signs in EMR: Most Recent Vital Signs Temp Pulse Resp BP Pulse Ox 36.2 C L 94 H 16 131/96 H 97 06/11/21 09:31 06/11/21 09:31 06/11/21 09:31 06/11/21 09:31 06/11/21 09:31 Lab Results Blood Type / Crossmatch: No Data to Display Complete Blood Count: White Blood Count 4.70 10^3/uL (4.4-10.8) 05/29/21 10:00 05/29/21 Red Blood Count 5.48 10^6/uL (4.36-5.78) 05/29/21 10:00 05/29/21 Hemoglobin 15.0 g/dL (13.5-17.5) 05/29/21 10:00 05/29/21 Hematocrit 45.5 % (40.0-50.0) 05/29/21 10:00 05/29/21 Platelet Count 175 10^3/uL (130-400) 05/29/21 10:00 05/29/21 Venous Blood Lactate 1.7 mmol/L (0.6-1.4) H 05/26/21 14:42 05/26/21 Complete Metabolic Panel: Sodium Level 139 mmol/L (136-145) 05/26/21 15:28 05/26/21 Potassium Level 3.0 mmol/L (3.5-5.1) L 05/26/21 15:28 05/26/21 Chloride Level 103 mmol/L (98-107) 05/26/21 15:28 05/26/21 Carbon Dioxide Level 30.8 mmol/L (21.0-32.0) 05/26/21 15:28 05/26/21 Blood Urea Nitrogen 12 mg/dL (7-18) 05/26/21 15:28 05/26/21 Creatinine 1.3 mg/dL (0.70-1.30) 05/26/21 15:28 05/26/21 Estimated GFR/1.73 m2 >= 60.00 (mL/min/1.73m2) 05/26/21 15:28 05/26/21 Calcium Level 8.9 mg/dL (8.5-10.1) 05/26/21 15:28 05/26/21 Albumin 4.1 g/dL (3.4-5.0) 05/26/21 12:35 05/26/21 Glucose Level 122 mg/dL (74-106) H 05/26/21 15:28 05/26/21 C-Reactive Protein 0.46 mg/dL (0.0-0.3) H 05/29/21 10:00 05/29/21 Liver Function Panel: Alanine Aminotransferase (ALT/SGPT) 44 U/L (16-63) 05/26/21 12:35 05/26/21 Aspartate Amino Transf (AST/SGOT) 28 U/L (15-37) 05/26/21 12:35 05/26/21 Coagulation Panel: No Data to Display Cardiac Panel: No Data to Display Arterial Blood Gas: No Data to Display Venous Blood Gas: No Data to Display Pancreas Panel: Lipase 76 U/L (73-393) 05/26/21 12:35 05/26/21 Thyroid Panel: No Data to Display Infectious Disease: Coronavirus (COVID-19)(PCR) Negative (Negative) 06/08/21 09:05 06/08/21 Coronavirus 2019 Source Nasal/Nares 06/08/21 09:05 06/08/21 Blood Cultures: No Data to Display Toxicology Panel: No Data to Display Anesthesia Assessment and Plan Anesthesia History Personal History: No History of Anesthesia Complications Family History: No Family History of Anesthesia Complications Exercise Tolerance Exercise Tolerance: Metabolic Equivalents>4 Cardiac & Pulmonary Exam Cardiac Exam: Normal S1/S2 Heart Sounds Pulmonary Exam: Clear Bilateral Breath Sounds Airway Exam Known Difficult Airway: No Mallampati Class: 1 Mouth Opening: Normal (> 3cm) Thyromental Distance: Greater than 3 cm Neck Range of Motion: Full ROM Neck Circumference: Thick Teeth Condition: Normal Dentition ASA Classification ASA Score: ASA 2 Emergency Case?: No NPO Status NPO Status: NPO Clears >2 hours, Solids >8 hours Anesthesia Plan Resuscitation Status: Full Code Anesthesia Technique: General Anesthesia Airway Planned: Natural Airway Monitors Used: Standard Monitors Preoperative Comments:: 41 yo with rectal bleed, family history of Crohn's here for colo. Sig PMHx: BMI 52, hypoK, daily cannabis use. Denies GERD, neuro/pulm/cardiac/ issues. Plan: prop.
[2021-06-11] MEDS: Lactated Ringers 1,000 ML 80 ML IV (09:45)
--- NOTE | 2021-06-11 10:30 | BOWEL_PTH ---
PATIENT: Yovani Beckford LOC: [facility] U#:[id number] AGE/SX: 41/M ROOM: RE06/11/[address]: Miri Moreno MD : 1980 BED: DIS: 06/11/2021 SPEC #: [id number] RECD: 06/11/21 11:51 STATUS: [facility]ELIA REQ #: [id number] LUIZA: 06/11/21 10:[address]: Miri Moreno DEPT: Surgical Specimen RECD BY: Letha Perkins ENTERED: 06/11/21 11:54 SP TYPE: Bowel OTHR DR: Ben Mathias Tissues: 1 - BIOPSY BOWEL 2 - BIOPSY BOWEL 3 - BIOPSY BOWEL 4 - BIOPSY BOWEL 5 - BIOPSY BOWEL Procedures: GROSS AND MICRO LEVEL 4 Comments: [id number]
--- NOTE | 2021-06-11 12:30 | W.ANESPOSTOP ---
Postoperative Evaluation Date, Time and Location Date Performed: 06/11/21 Time Performed: 12:30 Patient Location: Day Surgery Unit Vital Signs Most Recent Imported Vital Signs: Most Recent Vital Signs Temp Pulse Resp BP Pulse Ox 36.3 C L 83 18 155/88 H 96 06/11/21 12:10 06/11/21 12:10 06/11/21 12:10 06/11/21 12:10 06/11/21 12:10 Pain Score Most Recent Pain Score: Most Recent Pain Score Pain Level 0 06/11/21 12:10 Assessment Mental Status: Awake (Alert & Oriented to Patient Baseline) Airway and Respiratory Function: Patent airway with normal (patient baseline) respiratory exam Cardiovascular Function: Hemodynamically Stable Hydration Status: Adequately Hydrated Nausea & Vomiting: No Nausea or Vomiting Pain: Pt. Denies Any Pain Peripheral Nerve Block: Patient did not receive a nerve block Postoperative Comments:: Educated patient on s/s of aspiration. He remains without shortness of breath or chest pain. He will followup with surgery or go to ED if he becomes ill after arriving home.
== END 2021-06-11 13:15 | disposition home or self-care (01) ==
LOC: SUR 08:47
PROVIDERS: PCP Physician Assistant; Visit Provider Surgery
PROC: 0DJD8ZZ Inspection of Lower Intestinal Tract, Via Natural or Artificial Opening Endoscopic (ICD-10-PCS; CPT 45378; principal; 2021-06-11 11:30)
DX: K62.5 Hemorrhage of anus and rectum (principal); K64.4 Residual hemorrhoidal skin tags; D12.4 Benign neoplasm of descending colon; K60.2 Anal fissure, unspecified; K62.3 Rectal prolapse
CPT/HCPCS: 45385; 45380; 88305; J2704

== ENCOUNTER 2022-06-14 02:01 | Outpatient (CLI) | payer BC, SELFPAY ==
--- OUTSIDE RECORDS SUMMARY | 2022-06-14 02:04 | XMS_ITS | Encounter Summary ---
:1980 Author Organization [facility] [place] [address] Care Team Providers Name Role Phone Unavailable Primary Care Provider Unavailable Encounter Details Date Type Department Care Team Description 04/02/2022 Telephone General Surgery at [facility] Ashley Chaney [facility] [place] [address] Social History Tobacco Use Types Packs/Day Years Used Date Never Assessed Sex Assigned at Date Recorded Not on file documented as of this encounter Miscellaneous Notes Telephone Encounter - Ashley Chaney - 04/02/2022 8:39 AM EDT Left message for patient to call back to review next steps with [facility] - need to do stop romero, [facility]. Have not mailed folder waiting until return call from patient. documented in this encounter Plan of Treatment Upcoming Encounters Date Type Specialty Care Team Description 07/10/2022 Office Visit Weight and Wellness Jose Craft [facility] ER [address] [place], [place] [address] (Wo rk) 08/07/2022 Office Visit Weight and Wellness Jose Craft [facility] [address] [place] [place] [address] (Wo rk) documented as of this encounter Visit Diagnoses Not on filedocumented in this encounter
--- OUTSIDE RECORDS SUMMARY | 2022-06-14 02:04 | XMS_ITS | Clinical Summary ---
:1980 Author Organization [facility] [address] Care Team Providers Name Role Phone Ben Mathias Primary Care Provider Allergies No known active allergies Medications Medication Sig Dispensed Refills Start Date End Date Status valsartan-hydrochlorot Take 1 tablet by 0 03/13/2022 Active hiazide (DIOVAN-HCT) mouth daily. 320-12.5 mg Tablet Encounters Date Type Specialty Care Team Description 06/13/2022 Telephone Weight and Wellness Lissa Garcia V Appo intment 06/12/2022 Office Visit Weight and Wellness Dulce Maria Murphy Abram lt BMI 50.0-59.9 kg/sq m 04/08/2022 Office Visit Weight and Wellness Salimaskeshav, Class 3 severe obesity with serious comorbidity and body mass index (BMI) of 50.0 to 59.9 in adult, unspecified obesity type; Monse Nielsen MD Hypertension , unspecified type 04/02/2022 Telephone General Surgery Ashley Chaney from Last 3 Months Social History Tobacco Use Types Packs/Day Years Used Date Never Assessed Sex Assigned at Date Recorded Not on file Last Filed Vital Signs Vital Sign Reading Time Taken Comments Blood Pressure 164/84 04/08/2022 8:33 has not taken AM EDT medication yet Pulse 69 04/08/2022 8:33 AM EDT Temperature - - Respiratory Rate - - Oxygen Saturation 96% 04/08/2022 8:33 AM EDT Inhaled Oxygen - - Concentration Weight 182.3 kg (402 lb) 06/12/2022 1:00 PM EDT Height 184.3 cm (6' 0.56) 04/08/2022 8:33 AM EDT Body Mass Index 53.68 04/08/2022 8:33 AM EDT Plan of Treatment Upcoming Encounters Date Type Specialty Care Team Description 07/10/2022 Office Visit Weight and Wellness Jose Murphy [facility] [address] [place], [place] [address] (Wo rk) 08/07/2022 Office Visit Weight and Wellness Jose Murphy [facility] [place] [address] (Wo rk) Health Maintenance Due Date Last Done Comments Covid-19 Vaccine (#1) 1980 HIV screen 1998 Hepatitis C Screening 1998 Lipid Screening 1998 Tdap adult 1999 Tetanus vaccine 1999 Diabetes Screening (HgbA1C or Glucose) 2020 Influenza (Flu) vaccine (1 of - Influenza standard 04/25/2022 series) Goals Goal Patient Goal Associated Recent Patient-Stated? Author Type Problems Progress Behaviors Lifestyle Dulce Maria Griffin Note: Formatting of this note might be d ifferent from the original. Continue to reduce added sugar intake by using less sugar in coffee and reducing soda Focus on bariatric eating behaviors, gary ecially timing of meals and meal sizes. Think about how you can adjust when you eat in the evening, eating less when you get home Find an alternative to eating as a way t o decompress when you get home: music, chair yoga, reading, etc Movement Lifestyle Betzy Griffin Note: Formatting of this note might be d ifferent from the original. -Move when you can: take the stairs, go for walks in the morning Insurance Payer Benefit Plan / Subscriber ID Effective Dates Phone Addre ss Type Group JOSE MURPHY [place] [id number] 2021-Present [address] [employer] [place] [address] Care Teams Editing Clerk Relationship Specialty Start Date End Date Ben Mathias PA PCP - General Internal Medicine 04/08/22 [address] [place] [address]
--- OUTSIDE RECORDS SUMMARY | 2022-06-14 02:04 | XMS_ITS | Encounter Summary ---
:1980 Author Organization [facility] [place] [address] Care Team Providers Name Role Phone Ben Mathias Primary Care Provider Reason for Referral Consultation (Routine) - New Request Specialty Diagnoses / Procedures Referred By Contact Refer red To Contact Weight and Wellness Diagnoses Class 3 severe obesity with serious comorbidity and body mass index (BMI) of 50.0 to 59.9 in adult, unspecified obesity type Monse Ingram We ighkierra Nielsen MD [address] [place], [place] [id number] [place] [address] Referral ID Status Reason Start Expiration Visits Visits Date Date Requested Authorized [id number] New Request Consult, 04/08/2022 04/08/2023 1 1 Test & Treat Consultation (Routine) - Authorized Specialty Diagnoses / Procedures Referred By Contact Refer red To Contact Sleep Center Diagnoses Class 3 severe obesity with serious comorbidity and body mass index (BMI) of 50.0 to 59.9 in adult, unspecified obesity type Monse Ingram [facility] [address] [place] [address] [employer] Phone: [place] [address] Referral ID Status Reason Start Date Expiration Visits Visits Date Requested Authorized [id number] Authorized Consult, 04/08/2022 04/08/2023 1 1 Test & Treat Reason for Visit Reason Comments Establish Care Weight managment Consultation (Routine) - Closed Specialty Diagnoses / Procedures Referred By Contact Refer red To Contact Weight and Wellness Diagnoses Obesity, unspecified obesity Tamiko Duggan, [facility] 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 [phone] [place], [place] [address] (Wo rk) Social History Tobacco Use Types Packs/Day Years Used Date Never Assessed Sex Assigned at Date Recorded Not on file documented as of this encounter Last Filed Vital Signs Vital Sign Reading Time Taken Comments Blood Pressure 164/84 04/08/2022 8:33 has not taken AM EDT medication yet Pulse 69 04/08/2022 8:33 AM EDT Temperature - - Respiratory Rate - - Oxygen Saturation 96% 04/08/2022 8:33 AM EDT Inhaled Oxygen - - Concentration Weight 179.5 kg (395 lb 04/08/2022 8:33 11.2 oz) AM EDT Height 184.3 cm (6' 0.56) 04/08/2022 8:33 AM EDT Body Mass Index 52.84 04/08/2022 8:33 AM EDT documented in this encounter Patient Instructions Patient InstructionsHonigsberg, Monse J, MD - 04/08/2022 8:30 AM EDT Great to meet you Yovani! Here are the bariatric behaviors to start reviewing. Please obtain labs FASTING and I will message you with any abnormal results and necessary steps. Otherwise we can discuss at our next visit. Continue engaging in health promoting behaviors. Stop caffeine (2 weeks prior to surgery) Continue to avoid grazing or mindless eating, and eat only at meal or snack times Consider logging food using an mohamud such as [employer] or [employer], paper and pencil is also a good method to help identify patterns Continue behavioral changes, especially: -Eating slowly, taking 20-30 min to complete a meal. Set aside plenty of time for the meal, take smaller bites (children???s utensils can help with this), leave reminders for yourself (e.g., notes, signs) in the places you eat - eating and drinking by 30 minutes. Don???t bring a drink to the table, decrease amount over time (e.g., ?? glass, then ?? glass, then ?? glass, etc), avoid really dry foods/try to eat moistfoods, set a timer (can taper up gradually), leave notes for yourself (on the table, refrigerator, and cabinet doors tend to be good places), minimize salty foods, chew food more to produce more saliva -Increasing exercise. Park further away, take steps instead of elevators, swimming is great for those with pain/difficulty walking, walking is cheap and easy, get an exercise partner (family, friend, or pet will do), listen to music while you exercise, try different types of exercise to find one you like (e.g., walking, riding bike, going to gym, swimming, exercise videos), get on a regular exercise schedule, do chair exercises for upper body if knees/legs/back are problems -Sipping water. Use a sippy cup, freeze a partially filled bottle of water and sip as it melts, use a sports bottle with a pop-up lid, keep water available at all times, set timer to remind self to take sips if needed, don???t wait until you???re thirsty to drink documented in this encounter Progress Notes Monse Ingram MD - 04/08/2022 8:30 AM EDTSummary: 1st OV with [facility] Weight & [facility] Patient Name: Yovani Beckford Date of : 1980 Age: 42 y.o. Referring provider: Tamiko Duggan Dear AKIKO Key, Tamiko Duggan Thank you for referring Yovani Beckford to the [facility] [place]. Yovani Beckford presented to the [facility] for a consultative visit regarding obesity management. The patient presented with WHO Class 3 / EOSS Stage 3 Obesity defined by a BMI of Body mass index is 52.84 kg/m??. and comorbidities: HTN, kidney stones, UH. Yovani and I discussed and agreed upon the pillars of obesity treatment: nutrition, activity, behavioral change and medication management. Our team will address each of these pillars as we provide ongoing comprehensive obesity care for Yovani. I look forward to collaborating with you and Yovani on this journey. To that end, I will make medication adjustments as appropriate based on the patient's ongoing state of health and provide referrals as they relate to his obesity care. Medications that I often manage include, but are not limited to, anti- obesity meds, diabetic medications and anti-hypertensives. Any medication adjustments I make will be communicated to you to maintain seamless care. For referrals and other specific care plans, see the Assessment and Plan: ASSESSMENT: Yovani Beckford is a 42 y.o. male with uncontrolled obesity who presented to [facility] today for medical evaluation with associated co-morbidities as above. Obesity is a multifactorial disease, and in this case, the following factors could be potential contributors: ?? Obesity is caused by hormonal disorder of fat regulation and insulin is the major hormone that drives weight gain. ?? Genetics and Epigenetics: +FHx ?? Insulin resistance: ? ?? Timing of meals:late night eating ?? Consumption of sugar and highly refined carbohydrates (processed foods)--consumption of foods that are high in sugar and processed that can lead to metabolic/hormonal changes that can increase body fat by causing insulin resistance. ?? Low intake of fat fighting foods (fruits, vegetables, legumes, nuts, seeds, quality protein) ?? Medications: NO ?? Sleep Disturbance:insomnia/VENICE - high risk for VENICE ?? Disordered Eating: NO ?? Inactivity: YES ?? Stress and too much cortisol: Prolonged cortisol release associated with chronic stress is strongly correlated with the development of obesity PLAN: 1. Fasting labs 2. Referral to sleep medicine, [facility] psych placed 3. RD visits x 3 4. F/U with me prn - if medication management needed based on labs CHIEF COMPLAINT: Management of excess weight, pursuing bariatric surgery. HISTORY OF PRESENT ILLNESS: Has an , was seen by a surgeon in [place]. Surgeon recommended bariatric surgery. Went to bariatric info session, a little overwhelming, a lot of info. Has sent in first set of paperwork, has to do PCP letter of support. Weight History: [facility] Weight History 04/08/2022 What is the most you have ever weighed? 440 How old were you then? 40 How many times have you lost 10 pounds or more because you were trying to lose weight? Was it... 11 times of more How did you try to lose weight? Ate less food, Switched to food with less calories, Ate less fat, Ate fewer carbohydrates, Exercised, Skipped meals, Drank a lot of water, Ate more fruits, vegetables, salads, Ate less sugar, candy, sweets, Changed eating habits (didn't eat late at night, ate several small meals a day), Ate less junk food or fast food, Joined a weight loss program (ex: Weight Watchers,GABRIELLA Montero, or Overeaters Anonymous), Followed a special diet (ex: Dr. 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 Nutritional choices. Chooses for ease/convenience. Why is now the time to try again? Needs UHR. 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 Not so much a diet or program but make better decisions. Also tried WW a couple of times, Atkins back in the day. What was helpful from that/those programs? Family Hx of Obesity? Mother is very overweight as well. Hx medications to treat obesity: NO Hx metabolic surgery: Pursuing now Initial weight 04/08/22: 395 lbs Initial Body mass index is 52.84 kg/m??. Goal weight: Under 300 lbs would be amazing 10% loss: 40 lbs Other goals: [facility] Importance 04/08/2022 How important is it to you to make a change to improve your health? 8 How confident are you that you can make a change to improve your health? 7 Obesogenic medications: None Obesity related co-morbidities: Past Medical History 04/08/2022 Have you had any of the following medical problems? 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 NO []S []T []O []P []B []A []N []G: [place] Sleep Apnea 04/08/2022 Please choose the correct response to each of the following questions. Do you snore? Yes Your snoring is: Very loud - can be heard in adjacent rooms How often do you snore? 3-4 times a week Has your snoring ever bothered other people? Yes Has anyone noticed that you quit breathing during your sleep? Never or nearly never How often do you feel tired or fatigued after your sleep? Nearly every day During your waking time, do you feel tired, fatigued or not up to par? 3-4 times a week Have you ever nodded off or fallen asleep while driving a vehicle? No Do you have high blood pressure? Yes [place] Category I 4 (Positive) [place] Category I Result 1 (Negative) [place] Category 2 2 (Positive) [place] Category II Result 1 (Negative) [place] Category 3 1 (Positive) [place] Sleep Apnea Result 3 (High Risk) Daily Routine/24 hour recall Time to Bed? 1-3 AM Time to Sleep? 30 minutes When do you wake? 9-10 AM - usually not hungry Eating episode #1 12-1 PM Coffee cream and sugar - 32 oz on avg, sandwich - grilled cheese OR PB Or hotdog; fast food sometimes Eating episode #2 5-530 PM staff meal - starch/vegy/protein - pasta OR meatloaf Or fried/grilled chicken OR chef broiler or fry salad Eating episode #3 9-11 PM - chips, sandwiches, Ramen Eating before bed IN ORDER to sleep? NO What do you drink? Coffee/cream/sugar 32 oz; orange soda, coke, tons of water - a gallon a day Food Behaviors Appetite: I don't feel ravenous, some impulsivity/mindless eating Satiety/Fullness: Quite a bit, sometimes 2 grilled cheese, but notes used to do 3-4 hot dogs, 5 slices of pizza and is eating less. Not as hungry as I used to be Cravings? Salty Eating out of: [x]Hunger []Habit []It's time. [x]Boredom [x]Emotions/lonely Eating patterns: [x] Mindless eating [] binge eating [x] Grazing-part of the job [] skips meals [x] Night eating-NO Movement: [facility]: JOSE 04/08/2022 How many days during the past week have you performed physical activity where your heart beats faster and your breathing is harder than normal for 30 minutes or more? 0 How many days in a typical week do you perform an activity such as this? 0 Is ambulation limited most or all of the time? NO Tolerance: he can climb a flight of stairs? YES Purposeful exercise now? NO Activity enjoyed in past? 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 Fatigue, Constipation, Diarrhea, Joint pain, Muscle pain, Frequent urination WW PHQ-2 04/08/2022 Over the LAST 2 WEEKS, how often have you been bothered by little interest or pleasure in doing things? More than half the days Over the LAST 2 WEEKS, how often have you been bothered by feeling down, depressed, or hopeless? Several days PHQ-2 Score 3 (Full PHQ-9 indicated) WCCGAD2 04/08/2022 Over the LAST 2 WEEKS, how often have you been bothered by feeling nervous, anxious or on edge? Several days Over the LAST 2 WEEKS, how often have you been bothered by not being able to stop or control worrying? Several days GAD2 Subscore 2 (Brief screen negative) MEDICAL HISTORY Medical and Surgical History: Reviewed. No past medical history on file. SurgHx: Ebro teeth Colonoscopy (notes vomiting/aspiration w sedation, thinks he was intubated) Medication C/I: Any h/o pancreatitis? NO Any h/o kidney stones? YES Any h/o or FHx of thyroid CA (MTC?) NO Any h/o or FHx of MEN 2? NO Any h/o kidney disease/failure? NO Any h/o glaucoma? NO Family History: Reviewed. Family History 04/08/2022 Do any of these medical conditions run in your family? Obesity, Early cardiac Social History: /Partner? No partner Children? 1 daughter, 13 yoa Smoking? NO ETOH? A couple times a year Other substances? Smokes MJ WWC: Alcohol 04/08/2022 How often do you have a drink containing alcohol? Monthly or less How many standard drinks containing alcohol do you have on a typical day? 0 drinks How often do you have six or more drinks on one occasion? Less than monthly VITAL SIGNS: Vitals: 04/08/22 0833 BP: 164/84 Pulse: 69 SpO2: 96% Weight: (!) 179.5 kg (395 lb 11.2 oz) Height: 184.3 cm (6' 0.56) Body mass index is 52.84 kg/m??. PHYSICAL EXAM: Gen: 42 y.o. year old male with obesity who appears stated age. NAD. Body fat distribution- predominantly central. Appearance: appropriate, well-kempt Skin: + tags Psych: pleasant, conversant and engaged, normal affect, cognition and mood. PREVIOUS LABS AND IMAGING: Reviewed Last CBC Last CMP No results found for: ALT, AST, GGT, ALKPHOS, BILITOT, BILIDIR, ALBUMIN, PROT Lipid Panel Last 3 Hemoglobin A1Cs No results found for: HA1C Latest TSH No results found for: TSH No results found for: LABINSU No results found for: GLUCFASTING No results found for: FERRITIN No results found for: [id number] No results found for: 25OHVITD [facility] INITIAL EVALUATION: FACTORS CONTRIBUTING TO OBESITY/INTERVENTION Risk Stratification: possible insulin resistance, possible VENICE Obesogenic meds: NONE Plan: No change at this time Co-morbidities to address: Back pain, HTN and kidney stones AOM: Deferred decision making until f/u. Medication considerations: []insulin sensitizing meds []phentermine []topiramate []bupropion []naltrexone Factors contributing to decision making: NO hx of pancreatitis, NO Fam or personl hx of medullary thyroid ca, Hx of kidney stones, NO Hx of glaucoma/regular eye check ONGOING INTERVENTIONS Referrals: Dietitian,Sleep medicine, individual Pyschology, embedded, bariatric For specific behavioral interventions, see goals Nutrition: discussed whole food, quality diet; specific recommendations per RD Prebariatric counseling Behavior: Eating related to boredom/emotions, Portion control Activity: provided resistance bands and booklet Barriers: []needs cardiac eval []injury/pain preventing activity right now Stress Management:no concerns Sleep: concern for VENICE, refer to sleep med Self-monitoring: Food log Discussion 04/08/22: Pillars, Set point theory, BSP and requirements. Yovani was seen today for establish care. Diagnoses and all orders for this visit: Class 3 severe obesity with serious comorbidity and body mass index (BMI) of 50.0 to 59.9 in adult, unspecified obesity type - Referral to Sleep Disorders Center - Amb Referral to [facility] Psych Evaluation Hypertension, unspecified type Orders Placed This Encounter Procedures ??? CBC (with Diff) ??? CMP w/fasting Glucose ??? Ferritin ??? Hemoglobin A1c ??? Insulin, total ??? Lipid Panel (Reflex Direct LDL) ??? TSH ??? Vitamin B12 ??? Vitamin D, 25-Hydroxy ??? Folate, serum ??? Iron and TIBC ??? PTH ??? Vitamin B1, whole blood ??? Referral to Sleep Disorders Center ??? Amb Referral to [facility] Psych Evaluation Return Lab results, need for meds, for Schedule RD x 3 visits, Schedule with Sleep Med, Referral to pre nayeli psych placed. I spent a total of 60 minutes in [id number] discussion/counseling regarding the diagnosis of obesity, interventions for treatment, and obesity related co- morbidities as well as documentation of visitand chart review, including notes, labs, and other evaluations as reviewed below. Goals Addressed None Care pathway: Pathway: [facility] PATHWAY - ADULT 04/08/2022 Pre- Bariatric Surgery Activate I spoke with Yovani about opportunities to participate in research and to be contacted by our research chef assistant. They indicated that they are: [] INTERESTED [] NOT INTERESTED // [x] NOT ADDRESSED [facility] Initial Responses 04/08/2022 URICA - Readiness Score 6 (Pre-contemplation State) WEL-SF Total Scores 34 PHQ-2 SubScore 3 (Full PHQ-9 indicated) GAD2 Subscore 2 (Brief screen negative) PROMIS 10 Physical Scores 42.3 PROMIS 10 Mental Scores 36.3 Total REAP-S Scores 18 TFEQ - Uncontrolled Eating (UE) 51.85 TFEQ-Cognitive Restraint (CR) 33.33 TFEQ-Emotional Eating 72.22 Food Insecurity Score 2 [place] Category I Result 1 (Negative) [place] Category II Result 1 (Negative) [place] Category III 1 (Positive) [place] Sleep Apnea Total 3 (High Risk) Schooling Some college or technical school Importance of making a change 8 Confidence to make change 7 Most weighed 440 Age most weighed 40 Times lost 10 lbs or more 11 times of more Lost weight how? Ate less food, Switched to food with less calories, Ate less fat, Ate fewer carbohydrates, Exercised, Skipped meals, Drank a lot of water, Ate more fruits, vegetables, salads, Ate lesssugar, candy, sweets, Changed eating habits (didn't eat late at night, ate several small meals a day), Ate less junk food or fast food, Joined a weight loss program (ex: Weight Watchers, Rabia Wagner, GABRIELLA, or Overeaters Anonymous), Followed a special diet (ex: Dr. Elizondo, [facility], Nutrisystem) Worried food would run out before we got money to buy more Never true Food didnt last; no money to get more Never true URICA: <8 Precontemp, 8-12 Contemp, 12+ Prep TFEQ: Look at transformed scores, average is 50, +/-2SD is sigfnif, consider referral >70 WEL-SF: Range 0-80, higher = better PROMIS Avg score = 50 REAP score 13-39, higher = more diversity in diet, better documented in this encounter Plan of Treatment Upcoming Encounters Date Type Specialty Care Team Description 07/10/2022 Office Visit Weight and Wellness Jose Craft [facility] [address] [place] [address] (Wo rk) 08/07/2022 Office Visit Weight and Wellness Jsoe Craft [facility] [address] [place], [place] [address] (Wo rk) Scheduled Orders Name Type Priority Associated Diagnoses Order S chedule CBC (with Diff) Lab Routine Class 3 severe obesity Ex pected: 04/08/2022 with serious comorbidity (Ap proximate), and body mass index (BMI) Ex kristie: 04/08/2023 of 50.0 to 59.9 in adult, unspecified obesity type CMP w/fasting Glucose Lab Routine Class 3 severe obes ity Expected: 04/08/2022, with serious comorbidity Exp ires: 04/08/2023 and body mass index (BMI) of 50.0 to 59.9 in adult, unspecified obesity type Ferritin Lab Routine Class 3 severe obesity Expec sun: 04/08/2022 with serious comorbidity (Ap proximate), and body mass index (BMI) Ex kristie: 04/08/2023 of 50.0 to 59.9 in adult, unspecified obesity type Hemoglobin A1c Lab Routine Class 3 severe obesity Exp ected: 04/08/2022 with serious comorbidity (Ap proximate), and body mass index (BMI) Ex kristie: 04/08/2023 of 50.0 to 59.9 in adult, unspecified obesity type Insulin, total Lab Routine Class 3 severe obesity Exp ected: 04/08/2022 with serious comorbidity (Ap proximate), and body mass index (BMI) Ex kristie: 04/08/2023 of 50.0 to 59.9 in adult, unspecified obesity type Lipid Panel (Reflex Lab Routine Class 3 severe obesit y Expected: 04/08/2022 Direct LDL) with serious comorbidity (Ap proximate), and body mass index (BMI) Ex kristie: 04/08/2023 of 50.0 to 59.9 in adult, unspecified obesity type TSH Lab Routine Class 3 severe obesity Expec sun: 04/08/2022 with serious comorbidity (Ap proximate), and body mass index (BMI) Ex kristie: 04/08/2023 of 50.0 to 59.9 in adult, unspecified obesity type Vitamin B12 Lab Routine Class 3 severe obesity Expec sun: 04/08/2022 with serious comorbidity (Ap proximate), and body mass index (BMI) Ex kristie: 04/08/2023 of 50.0 to 59.9 in adult, unspecified obesity type Vitamin D, 25-Hydroxy Lab Routine Class 3 severe obes ity Expected: 04/08/2022 with serious comorbidity (Ap proximate), and body mass index (BMI) Ex kristie: 04/08/2023 of 50.0 to 59.9 in adult, unspecified obesity type Folate, serum Lab Routine Class 3 severe obesity Expe cted: 04/08/2022, with serious comorbidity Exp ires: 04/08/2023 and body mass index (BMI) of 50.0 to 59.9 in adult, unspecified obesity type Iron and TIBC Lab Routine Class 3 severe obesity Expe cted: 04/08/2022, with serious comorbidity Exp ires: 04/08/2023 and body mass index (BMI) of 50.0 to 59.9 in adult, unspecified obesity type PTH Lab Routine Class 3 severe obesity Expec sun: 04/08/2022, with serious comorbidity Exp ires: 04/08/2023 and body mass index (BMI) of 50.0 to 59.9 in adult, unspecified obesity type Vitamin B1, whole blood Lab Routine Class 3 severe ob esity Expected: 04/08/2022, with serious comorbidity Exp ires: 04/08/2023 and body mass index (BMI) of 50.0 to 59.9 in adult, unspecified obesity type Scheduled Referrals Name Type Priority Associated Diagnoses Order S chedule Referral to Sleep Outpatient Referral Routine Class 3 severe O rdered: Disorders Center obesity with serious comorbidity and body mass index (BMI) of 50.0 to 59.9 in adult, unspecified obesity type Amb Referral to [facility] Outpatient Referral Routine Class 3 severe Ordered: Psych Evaluation obesity with serious comorbidity and body mass index (BMI) of 50.0 to 59.9 in adult, unspecified obesity type documented as of this encounter Visit Diagnoses Diagnosis Class 3 severe obesity with serious cyrus rbidity and body mass index (BMI) of 50.0 to 59.9 in adult, unspecified obesity type Hypertension, unspecified type documented in this encounter Care Teams Medical Reimbursement Specialist Relationship Specialty Start Date End Date Ben Mathias PA PCP - General Internal Medicine 04/08/22 [address] [place] [address] documented as of this encounter
--- OUTSIDE RECORDS SUMMARY | 2022-06-14 02:04 | XMS_ITS | Encounter Summary ---
:1980 Author Organization [facility] [place] [address] Care Team Providers Name Role Phone Ben Mathias Primary Care Provider Reason for Visit Reason Onset Date Comments Appointment 06/13/2022 Encounter Details Date Type Department Care Team Description 06/13/2022 Telephone Weight and Wellness at [facility] Lissa Garcia V Appointment [address] [place] [address] Social History Tobacco Use Types Packs/Day Years Used Date Never Assessed Sex Assigned at Date Recorded Not on file documented as of this encounter Miscellaneous Notes Telephone Encounter - Lissa Garcia V - 06/13/2022 12:19 PM EDT Return for Interested in HLP documented in this encounter Plan of Treatment Upcoming Encounters Date Type Specialty Care Team Description 07/10/2022 Office Visit Weight and Wellness Jose Craft [facility] [address] [place], [place] [address] (Wo rk) 08/07/2022 Office Visit Weight and Wellness Jose Craft [facility] ER [address] [place], [place] [address] (Wo rk) documented as of this encounter Goals Goal Patient Goal Associated Recent Patient-Stated? Author Type Problems Progress Behaviors Lifestyle No Dulce Maria Craft Note: Formatting of this note might be [...] stairs, go for walks in the morning documented as of this encounter Visit Diagnoses Not on filedocumented in this encounter Care Teams Pediatric Dentist Relationship Specialty Start Date End Date Ben Mathias PA PCP - General Internal Medicine 04/08/22 [address] [place] [address] documented as of this encounter
--- OUTSIDE RECORDS SUMMARY | 2022-06-14 02:04 | XMS_ITS | Encounter Summary ---
:1980 Author Organization [facility] Address [facility] [place] [address] Care Team Providers Name Role Phone Ben Mathias Primary Care Provider Encounter Details Date Type Department Care Team Description 06/12/2022 Office Visit Weight and Wellness Jose Craft Adult BMI 50.0-59.9 at [facility] kg/sq m [address] [place] [address] [place] [address] [phone] (Wo rk) Social History Tobacco Use Types Packs/Day Years Used Date Never Assessed Sex Assigned at Date Recorded Not on file documented as of this encounter Last Filed Vital Signs Vital Sign Reading Time Taken Comments Blood Pressure - - Pulse - - Temperature - - Respiratory Rate - - Oxygen Saturation - - Inhaled Oxygen Concentration - - Weight 182.3 kg (402 lb) 06/12/2022 1:00 PM EDT Height - - Body Mass Index 53.68 04/08/2022 8:33 AM EDT documented in this encounter Patient Instructions Patient InstructionsDulce Maria Craft - 06/12/2022 1:15 PM EDT It was great to chat with youYovani. Below are goals discussed today as well as in past visits. Please reach out with a [employer] message if you have any questions or concerns. Dulce Maria Goals Behaviors Continue to reduce added sugar intake by using less sugar in coffee and reducing soda Focus on bariatric eating behaviors, especially timing of meals and meal sizes. Think about how you can adjust when you eat in the evening, eating less when you get home Find an alternative to eating as a way to decompress when you get home: music, chair yoga, reading, etc Movement -Move when you can: take the stairs, go for walks in the morning documented in this encounter Progress Notes Dulce Maria Craft - 06/12/2022 1:15 PM EDT Nutrition Intervention for Weight Management Initial RD visit with Yovani BeckfordTYRA 1980 Weight Today: Wt Readings from Last 3 Encounters: 06/12/22 (!) 182.3 kg (402 lb) 04/08/22 (!) 179.5 kg (395 lb 11.2 oz) BMI Readings from Last 3 Encounters: 06/12/22 53.68 kg/m?? 04/08/22 52.84 kg/m?? Interview: Yovani is here to pursue bariatric surgery. 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 Bedtime is 1-3 am, wake up 9-10 am. Often doesn't eat until leaves for work, evening meal is at work, will eat when he gets home. Has made some changes in the past, like reducingsoda and portion sizes. Discussed bariatric behaviors, continuing to reduce soda, and working on adjusting timing of meals. Weight Loss History: WW, lost weight, [facility]-has an irregular eating schedule, wanted something healthy and easy. Last few years have been more conscious what is eating, movement more, like taking the stairs. Down 40-50 lbs. Typical Dietary Intake: B: croissant, sandwich, coffee; [employer] 1/wk L: D: 5 pm staff meal-stir tan: pasta-cream or tomato sauce S: 10 pm-12 am Leftovers from work; hot dogs; PBJ Typical Beverages: [x] coffee (Cups per day: 32 oz sometimes [x] half and half (unflavored) [] flavored creamer (sugar) [] flavored creamer (sugar-free) [x] added sugar - (total: [] added non-caloric sweetener [x] water - (total: > 64 oz [x] plain [] crystal light or other sugar-free additive [] [place] [] Alcohol (Amount per week: rarely [] diet soda [] diet other drink [x] regular soda 2-3/day [] juice [] milk Appetite/Hunger: [] feels managed with foods/meals outlined above [x] discussed meal/snack schedule adjustment today- see goals [] patient identifies eating for reasons other than hunger- see interview above [] Current food Tracking [] discussed potential benefit starting food tracking - see goals Patient Goals from Team: Goals None Bariatric eating behaviors introduced or reviewed: [x] Stop eating at comfortable full point (eating slowly to know, chewing thoroughly) [] Any binging identified? (6 months no binging prior to surgery) [x] Regular meal pattern, avoid grazing, reasonable snack frequency [x] Plan protein at all meals and snacks, eat protein first [x] Total water intake [x] eating and drinking by 30 minutes on either side [x] Sip rather than gulp [x] Reduce coffee intake down to ~1 cup (caffeine) prior to surgery [x] Reduce alcohol, ideally avoid [] Currently smoking? [] Former smoker, quit date: (2 months nicotine-free prior to surgery) Activity: [] reviewed current goals [] updated goals Barriers to Change: None noted Nutrition Goals updated today: Goals Addressed This Visit's Progress ??? Behaviors ??? Continue to reduce added sugar intake by using less sugar in coffee and reducing soda ??? Focus on bariatric eating behaviors, especially timing of meals and meal sizes. Think about how you can adjust when you eat in the evening, eating less when you get home ??? Find an alternative to eating as a way to decompress when you get home: music, chair yoga, reading, etc ??? Movement -Move when you can: take the stairs, go for walks in the morning Monitor/Evaluate: [x] Currently scheduled for: [] 1st consecutive monthly nutrition visit [x] 2nd consecutive monthly nutrition visit [x] 3rd consecutive monthly nutrition visit Above determined to the best ability of this designer writer. Patient will contact bariatric surgery team forany official determination about scheduling and insurance requirements ( ) Thank you, Dulce Maria Craft RD, LD 30 minutes were spent in visit today, including contact with patient, chart review, and documentation documented in this encounter Plan of Treatment Upcoming Encounters Date Type Specialty Care Team Description 07/10/2022 Office Visit Weight and Wellness Jose Craft [facility] [address] [place], [place] [address] (Wo rk) 08/07/2022 Office Visit Weight and Wellness Jose Craft [facility] [address] [place], [place] [address] (Wo rk) documented as of this [...] as of this encounter Visit Diagnoses Diagnosis Adult BMI 50.0-59.9 kg/sq m Body Mass Index 50.0-59.9, adult documented in this encounter Care Teams [employer] Relationship Specialty Start Date End Date Ben Mathias PA PCP - General Internal Medicine 04/08/22 [address] [place] [address] documented as of this encounter
--- OUTSIDE RECORDS SUMMARY | 2022-06-14 02:05 | XMS_ITS | Encounter Summary ---
:1980 Author Organization [facility] Address [address] [place] [address] Care Team Providers Name Role Phone Unknown, Provider Primary Care Provider Encounter Details Date Type Department Care Team Description 06/11/2021 Lab Requisition [facility] Jermain Moreno for other Pathology & MD Betsy general examination Laboratory Medicine [address], [place] [address] [facility] [id number] [place] [id number] Social History Tobacco Use Types Packs/Day Years Used Date Never Assessed Sex Assigned at Date Recorded Not on file documented as of this encounter Plan of Treatment Not on filedocumented as of this encounter Procedures Procedure Name Priority Date/Time Associated Diagnosis Comme nts SURGICAL PATHOLOGY Today 06/11/2021 10:30 Encounter for othe r Results for this EDT general examination procedur e are in the results section. documented in this encounter Results SURGICAL PATHOLOGY (06/11/2021 10:30 EDT) Note to Patient The following [facility] pathology results have CENTER been interpreted by LABORATORY your pathologist and SERVICES may be available to you before your health provider has had the opportunity to review them. Please allow time for your provider to receive these results and explore management options, if applicable. Final Diagnosis A. COLON, DESCENDING, BIOPSY: [facility] - Sessile serrated adenoma [facility]ENTER LABORATORY B. TERMINAL ILEUM, BIOPSY: SERVICES - No significant pathologic abnormality C. SIGMOID COLON, BIOPSY: - No significant pathologic abnormality D. SIGMOID COLON, POLYP, BIOPSY: - No significant pathologic abnormality E. RECTUM, BIOPSY: - Mild prolapse changes Diagnosis Comment Heating Equipment Installer slides of thi s case were reviewed at the gastrointestinal/liver intradepartmental consultation conference. [facility] LABORATORY SERVICES Attestation By the signature below, [facility] Elec tronically the attending physician CENTER sign ed by Bay, certifies that they LABORATORY Minoo Hamilton MD on have 1) personally SERVICES 1 at 1228 conducted a gross and/or microscopic examination of the described specimen(s), and/or personally interpreted the results of laboratory testing of the described specimen(s), and 2) personally rendered or confirmed the above diagnosis. Clinical History Tenesmus, rectal pain; [facility] rectal bleeding LANE LABORATORY SERVICES Gross Description A. [facility] Received in formalin tl d with proper patient identification (initials H, A) and descending colon polyp is a hoover a dark brown irregular polypoid tissue (0.8 x 0.6 x 0.5 cm). Bisected and submitted in . [facility] LABORATORY B. SERVICES Received in formalin tl d with proper patient identification (initials H, A) and terminal ileum Bx are two pale-hoover tissues (0.5 x 0.4 x 0.2 cm and 0.3 x 0.2 x 0.1 cm). Entirely submitted in B1. C. Received in formalin tl d with proper patient identification (initials H, A) and sigmoid colon Bx are two hoover focally brown speckled tissues (0.3 x 0.2 by less than 0.1 cm and 0.2 x 0.2 x 0.1 cm). Entirely submitted in C1. D. Received in formalin tl d with proper patient identification (initials H, A) and sigmoid polyp is a pale hoover tissue (0.8 x 0.3 x 0.1 cm). Submitted intact in D1. E. Received in formalin tl d with proper patient identification (initials H, A) and rectal Bx are two pale hoover-white tissues (0.6 x 0.2 by less than 0.1 cm and 0.4 x 0.3 x 0.1 cm). Entirely submitted in E1. Lb Rojo 06/12/2021 8:14 Performing Lab [facility] LAB [facility] LABORATORY SERVICES Scanned Images [facility] LABORATORY SERVICES Specimen Tissue - Specimen from rectum (specimen) Tissue specimen (specimen) - Entire smal l intestine (body structure) Tissue specimen (specimen) - Entire sigm oid colon (body structure) Tissue specimen (specimen) - Entire sigm oid colon (body structure) Tissue specimen (specimen) - Specimen fr om rectum (specimen) Performing Organization Address City/State/ZIP Code Phon e Number [facility] CENTER LABORATORY [address] [place] [address] SERVICES documented in this encounter Visit Diagnoses Diagnosis Encounter for other general examination documented in this encounter Care Teams Shingle Sawyer Relationship Specialty Start Date End Date Unknown, Provider, PCP - General 05/25/21 documented as of this encounter
--- OUTSIDE RECORDS SUMMARY | 2022-06-14 02:05 | XMS_ITS | Encounter Summary ---
:1980 Author Organization [facility] Address [address] [place] [address] Care Team Providers Name Role Phone Unknown, Provider Primary Care Provider Encounter Details Date Type Department Care Team Description 10/27/2020 Lab Requisition [facility] Outr Resulting Lab, Pathology & Laboratory Provider [facility] [address] [place] [address] Social History Tobacco Use Types Packs/Day Years Used Date Never Assessed Sex Assigned at Date Recorded Not on file documented as of this encounter Plan of Treatment Not on filedocumented as of this encounter Procedures Procedure Name Priority Date/Time Associated Diagnosis Comme nts HEPATITIS C AB W Routine 10/26/2020 13:00 Results for this REFLEX TO HCV RNA EST procedure are in BY PCR the results section. documented in this encounter Results HEPATITIS C AB W REFLEX TO HCV RNA BY PCR (10/26/2020 13:00 EST) Pathologist Sig nature Hep C Antibody Negative Negative [facility] LABORAT ORY SERVICES Specimen Blood - Venous blood (substance) Performing Organization Address City/State/ZIP Code Phon e Number [facility] LABORATORY [address] [place] [address] SERVICES documented in this encounter Visit Diagnoses Not on filedocumented in this encounter Care Teams Customer Liaison Relationship Specialty Start Date End Date Unknown, Provider, PCP - General 05/25/21 documented as of this encounter
--- OUTSIDE RECORDS SUMMARY | 2022-06-14 02:05 | XMS_ITS | Encounter Summary ---
:1980 Author Organization [facility] [place] [address] Care Team Providers Name Role Phone Unavailable Primary Care Provider Unavailable Reason for Referral Consultation (Routine) - Closed Specialty Diagnoses / Procedures Referred By Contact Refer red To Contact General Surgery Diagnoses UMBILICAL HERNIA - OBESITY Brice Villarreal MD [facility] [place] Surgery 4l Procedures PATIENT WITH UMBILICAL HERNIA NEEDING REPAIR AND BARIATRIC SURGERY [address] [address] [place] [address] Fax: Referral ID Status Reason Start Date Expiration Date Visits V isits Requested Authorized [id number] Closed Consult, 03/05/2022 03/05/2023 1 1 Test & Treat Encounter Details Date Type Department Care Team Description 03/05/2022 Transcribe [facility] [place] Brice status [facility] [address] [address] [phone] Social History Tobacco Use Types Packs/Day Years Used Date Never Assessed Sex Assigned at Date Recorded Not on file documented as of this encounter Plan of Treatment Upcoming Encounters Date Type Specialty Care Team Description 07/10/2022 Office Visit Weight and Wellness Jose Craft [facility] [place] [address] [place], [place] [address] (Wo rk) 08/07/2022 Office Visit Weight and Wellness Jose Craft [facility] [address] [place], [place] [address] (Wo rk) Scheduled Referrals Name Type Priority Associated Diagnoses Order S chedule Referral to Outpatient Referral Routine Bariatric surgery Ord ered: General Surgery status 03/05/2022 documented as of this encounter Visit Diagnoses Diagnosis Bariatric surgery status documented in this encounter
--- OUTSIDE RECORDS SUMMARY | 2022-06-14 02:05 | XMS_ITS | Encounter Summary ---
:1980 Author Organization [facility] Address [address] [place] [address] Care Team Providers Name Role Phone Unknown, Provider Primary Care Provider Encounter Details Date Type Department Care Team Description 10/27/2020 Lab Requisition [facility] Outr Resulting Lab, Pathology & Laboratory Provider [facility] [address] [place] [address] Social History Tobacco Use Types Packs/Day Years Used Date Never Assessed Sex Assigned at Date Recorded Not on file documented as of this encounter Plan of Treatment Not on filedocumented as of this encounter Procedures Procedure Name Priority Date/Time Associated Comments Diagnosis HIV 1/2 ANTIGEN AND Routine 10/26/2020 13:00 Resu lts for this ANTIBODY, 4TH EST procedure are in GENERATION the results section. documented in this encounter Results HIV 1/2 ANTIGEN AND ANTIBODY, 4TH GENERATION (10/26/2020 13:00 EST) HIV 1 and 2 Negative Negative [facility] Antibody/p24 Comment: LABORATORY Antigen, 4th If acute HIV-1 infection is suspected in a high risk ??patient, submit plasma specimen for HIV-1 RNA quantitation test. SERV ICES Generation Fourth Generation assay performed on the [employer]. Specimen Blood - Venous blood (substance) Performing Organization Address City/State/ZIP Code Phon e Number [facility] LABORATORY [address] [place] [address] SERVICES documented in this encounter Visit Diagnoses Not on filedocumented in this encounter Care Teams Funeral Professional Relationship Specialty Start Date End Date Unknown, Provider, PCP - General 05/25/21 documented as of this encounter
[2022-06-14 07:35] LABS: Abs Immature Grans 0.02 10^3/uL (0.0-0.06); Absolute Basophil Count 0.07 10^3/uL (0.0-0.2); Absolute Eosinophil Count 0.19 10^3/uL (0.0-0.7); Absolute Lymphocyte Count 2.24 10^3/uL (1.2-3.4); Absolute Monocyte Count 0.58 10^3/uL (0.1-0.8); Absolute Neutrophil Count 3.34 10^3/uL (1.2-6.7); Basophils % 1.1; HCT 45.1 % (40.0-50.0); HGB 14.7 g/dL (13.5-17.5); Immature Grans % 0.3; Lymphocytes % 34.8; MCH 27.2 pg (27.0-33.0); MCHC 32.6 % (32.0-36.0); MCV 84 fL (80-95); MPV 11.9 fL (8.0-11.0); Neutrophils % 51.8; Platelet Count 173 10^3/uL (130-400); RDW 12.2 % (11.8-14.1); WBC 6.44 10^3/uL (4.4-10.8)
[2022-06-14 08:23] LABS: Hemoglobin A1C 5.4 % (<5.7)
[2022-06-14 08:26] LABS: ALT 25 U/L (16-63); AST 14 U/L (15-37); Albumin 3.6 g/dL (3.4-5.0); Alkaline Phosphatase 81 U/L (46-116); Anion Gap 7.2 mmol/L (3-11); BUN 21 mg/dL (7-18); Bilirubin, Total 0.4 mg/dL (0.2-1.0); CO2 29.8 mmol/L (21.0-32.0); Calcium 8.5 mg/dL (8.5-10.1); Calculated LDL 105 mg/dL (<100); Chloride 105 mmol/L (98-107); Cholesterol 159 mg/dL (<200); Estimated GFR 96.37 (mL/min/1.73m2); Ferritin 126 ng/mL (26-388); Folate 8.8 ng/mL (8.6-20.0); Glucose 90 mg/dL (74-106); HDL Cholesterol 31 mg/dL (40-60); Potassium 3.6 mmol/L (3.5-5.1); Sodium 142 mmol/L (136-145); TSH 4.15 uIU/mL (0.36-3.74); Total Protein 7.2 g/dL (6.4-8.2); Triglyceride 117 mg/dL (<150); Vitamin B12 303 pg/mL (193-986)
[2022-06-14 08:30] LABS: Iron 45 ug/dL (65-175); Total Iron Binding Capacity 264 ug/dL (250-450); Transferrin Sat 17 % (20-55)
[2022-06-14 22:58] LABS: Parathyroid Hormone,Intact 124 pg/mL (19-88)
[2022-06-17 05:41] LABS: Vitamin D 25 Total 10.3 ng/mL (30-100)
[2022-06-17 14:45] LABS: Insulin, Free 31.6 mcIU/mL (2.6 - 24.9); Insulin, Total 31.6 mcIU/mL (2.6 - 24.9)
[2022-06-18 17:55] LABS: Thiamine (Vitamin B1), WB 122 nmol/L (70-180)
== END 2022-06-14 02:02 | disposition home or self-care (01) ==
LOC: LBO 02:02
PROVIDERS: PCP Physician Assistant; Visit Provider Surgery
DX: E66.01 Morbid (severe) obesity due to excess calories (principal)
CPT/HCPCS: 36415; 80053; 80061; 82306; 83525; 83527; 82607; 82728; 82746; 83036; 83540; 83550; 83970; 84425; 84443; 85025